=== PATIENT | male | born 1945 | race Caucasian/White ===

== ENCOUNTER 2024-06-04 18:55 | Emergency (ER) | payer OTHER ==
[~2024-06-04] VITALS: Ht 170.2 cm; Wt 93.6 kg
[~2024-06-04 18:55] MED LIST: ASPI81CH43 PO; FURO1TAB33 PO; Losartan Potassium PO; MET50T PO; POT20T PO
[2024-06-04 20:19] LABS: Basophils # (auto) 0 10 ^3/uL (0-0.2); Basophils % (auto) 0.6 % (0.0-2.0); Eosinophils # (auto) 0 10 ^3/uL (0-0.8); Eosinophils % (auto) 0.7 % (0.0-7.0); Hematocrit 42.3 % (41.0-53.0); Hemoglobin 14.1 g/dL (13.5-17.5); Lymphocytes # (auto) 0.7 10 ^3/uL (0.4-5.4); Lymphocytes % (auto) 10.5 % (10.0-50.0); Mean Corpuscular Hemoglobin 29.7 pg (28.0-32.0); Mean Corpuscular Hgb Conc. 33.2 g/dL (32.0-36.0); Mean Corpuscular Volume 89.4 fL (80.0-100.0); Monocytes # (auto) 0.2 10 ^3/uL (0-1.3); Monocytes % (auto) 3.5 % (0.0-12.0); Neutrophils # (auto) 5.4 10 ^3/uL (1.6-8.6); Neutrophils % (auto) 84.7 % (37.0-80.0); Nucleated Red Blood Cells % 0.2 %; Red Blood Cells 4.73 10^6/uL (4.5-5.90); Red Cell Distribution Width 14.9 % (11.8-14.3); White Blood Cell 6.4 10^3/uL (4.4-10.8)
[2024-06-04 20:23] LABS: Chloride 108 mmol/L (98-107); Potassium 4.1 mmol/L (3.5-5.1); Sodium 139 mmol/L (136-145)
[2024-06-04 20:24] LABS: Anion Gap 10 (5-15); Carbon Dioxide 21 mmol/L (20-30)
[2024-06-04 20:29] LABS: Blood Urea Nitrogen 24 mg/dL (9-23); Glucose 184 mg/dL (74-106)
[2024-06-04] MEDS: FUROSEMIDE 40 MG/4 ML VIAL IV ONE (21:15)
[2024-06-04 22:00] VITALS: PULSE 63; RESP 16; O2SAT 96
[2024-06-04 22:30] VITALS: BP 107/65; PULSE 63; RESP 18; TEMP 97.9; O2SAT 95
== END 2024-06-04 22:57 | disposition home or self-care (01) ==
LOC: ER 18:55
DX: I50.9 Heart failure, unspecified (principal); R79.89 Other specified abnormal findings of blood chemistry; J45.909 Unspecified asthma, uncomplicated; J44.9 Chronic obstructive pulmonary disease, unspecified; E78.5 Hyperlipidemia, unspecified; F17.210 Nicotine dependence, cigarettes, uncomplicated; Z85.9 Personal history of malignant neoplasm, unspecified; Z90.49 Acquired absence of other specified parts of digestive tract; Z95.1 Presence of aortocoronary bypass graft; Z79.899 Other long term (current) drug therapy
CPT/HCPCS: 36415; 71045; 80048; 83880; 84484; 85025; 93005; 96374; 99285; J1940

== ENCOUNTER 2024-06-18 18:45 | Emergency (ER) | payer OTHER ==
[~2024-06-18] VITALS: Ht 170.2 cm; Wt 91.8 kg
[2024-06-18 19:43] LABS: Basophils # (auto) 0.1 10 ^3/uL (0-0.2); Basophils % (auto) 0.8 % (0.0-2.0); Eosinophils # (auto) 0.2 10 ^3/uL (0-0.8); Eosinophils % (auto) 2.8 % (0.0-7.0); Hematocrit 44.3 % (41.0-53.0); Hemoglobin 14.6 g/dL (13.5-17.5); Lymphocytes # (auto) 1.3 10 ^3/uL (0.4-5.4); Lymphocytes % (auto) 20.4 % (10.0-50.0); Mean Corpuscular Hemoglobin 29.3 pg (28.0-32.0); Mean Corpuscular Volume 88.8 fL (80.0-100.0); Monocytes # (auto) 0.8 10 ^3/uL (0-1.3); Monocytes % (auto) 11.6 % (0.0-12.0); Neutrophils # (auto) 4.2 10 ^3/uL (1.6-8.6); Neutrophils % (auto) 64.4 % (37.0-80.0); Nucleated Red Blood Cells % 0.2 %; Red Blood Cells 4.99 10^6/uL (4.5-5.90); Red Cell Distribution Width 15.3 % (11.8-14.3); White Blood Cell 6.5 10^3/uL (4.4-10.8)
[2024-06-18 19:52] LABS: Chloride 107 mmol/L (98-107); Potassium 4.4 mmol/L (3.5-5.1); Sodium 142 mmol/L (136-145)
[2024-06-18 19:53] LABS: Anion Gap 9 (5-15); Calcium 8.7 mg/dL (8.7-10.4); Carbon Dioxide 26 mmol/L (20-30)
[2024-06-18 19:58] LABS: BUN/Creatinine Ratio 18.6 (10.0-20.0); Blood Urea Nitrogen 29 mg/dL (9-23); Glucose 138 mg/dL (74-106)
[2024-06-18 20:02] LABS: INR 1.15 (0.9-1.15); Partial Thromboplastin Time 25.2 SEC (24.5-34.5); Prothrombin Time 12.1 sec (9.3-11.8)
[2024-06-18 20:49] VITALS: PULSE 60; RESP 12; O2SAT 96
[2024-06-19 00:09] VITALS: BP 105/69; PULSE 62; RESP 11; TEMP 97.3; O2SAT 95
== END 2024-06-18 22:04 | disposition short-term general hospital (02) ==
LOC: ER 18:45
DX: I71.40 Abdominal aortic aneurysm, without rupture, unspecified (principal); J44.9 Chronic obstructive pulmonary disease, unspecified; Z90.49 Acquired absence of other specified parts of digestive tract; Z88.1 Allergy status to other antibiotic agents; Z79.899 Other long term (current) drug therapy; Z79.82 Long term (current) use of aspirin; E78.5 Hyperlipidemia, unspecified; Z98.890 Other specified postprocedural states
CPT/HCPCS: 36415; 71250; 74176; 80048; 83880; 84484; 85025; 85610; 85730; 86850; 86900; 86901; 93005

== ENCOUNTER 2024-09-10 00:03 | Inpatient (IN) | payer OTHER ==
[~2024-09-10] VITALS: Ht 170.2 cm; Wt 93.3 kg
[2024-09-10] VITALS (9 sets, daily range): BP systolic 100–110; BP diastolic 39–85; PULSE 60–66; RESP 16–20; TEMP 97.7–97.8; O2SAT 93–99
[2024-09-10] MEDS: ALBUTEROL SULF 2.5 MG/0.5ML(0.5%) NEB SOLN NEB ONE (00:35)
[2024-09-10] MEDS: IPRATROPIUM BROM 0.5 MG/2.5ML INH SOL NEB ONE (00:36)
[2024-09-10 00:43] LABS: Basophils # (auto) 0.1 10 ^3/uL (0-0.2); Basophils % (auto) 0.5 % (0.0-2.0); Eosinophils # (auto) 0.1 10 ^3/uL (0-0.8); Eosinophils % (auto) 1.1 % (0.0-7.0); Hemoglobin 15.4 g/dL (13.5-17.5); Lymphocytes # (auto) 1.1 10 ^3/uL (0.4-5.4); Lymphocytes % (auto) 11.9 % (10.0-50.0); Mean Corpuscular Hemoglobin 30.9 pg (28.0-32.0); Mean Corpuscular Hgb Conc. 33.6 g/dL (32.0-36.0); Mean Corpuscular Volume 92.1 fL (80.0-100.0); Monocytes # (auto) 1.1 10 ^3/uL (0-1.3); Neutrophils % (auto) 74.5 % (37.0-80.0); Platelet Count (auto) 155 10^3/uL (140-450); Red Cell Distribution Width 15.7 % (11.8-14.3); White Blood Cell 9.5 10^3/uL (4.4-10.8)
[2024-09-10 01:00] LABS: INR 1.38 (0.9-1.15); Partial Thromboplastin Time 26.7 SEC (24.5-34.5); Prothrombin Time 14.3 sec (9.3-11.8)
[2024-09-10 01:01] LABS: Alanine Aminotransferase 53 U/L (7-40); Albumin 4.3 g/dL (3.2-4.8); Alkaline Phosphatase 123 U/L (46-116); Anion Gap 8 (5-15); Aspartate Aminotransferase 42 U/L (13-40); BUN/Creatinine Ratio 15.6 (10.0-20.0); Blood Urea Nitrogen 35 mg/dL (9-23); Calcium 9.5 mg/dL (8.7-10.4); Carbon Dioxide 24 mmol/L (20-31); Chloride 105 mmol/L (98-107); Glucose 191 mg/dL (74-106); Potassium 4.3 mmol/L (3.5-5.1); Sodium 137 mmol/L (136-145)
[2024-09-10 01:02] LABS: Bilirubin, Total 1.5 mg/dL (0.2-1.0); Total Protein 6.9 g/dL (5.7-8.2)
[2024-09-10] MEDS: methylPREDNISolone SOD SUCC 125 MG/2 ML VL IV ONE (01:08)
[2024-09-10] MEDS: levoFLOXacin 500MG 100 ML IV ONE ×2 (01:09→10:37)
[2024-09-10] MEDS: BACLOFEN 10 MG TAB PO ONE (03:11)
[2024-09-10] MEDS: FUROSEMIDE 40 MG/4 ML VIAL IV ONE (03:12)
[2024-09-10] MEDS ORDERED: NITROGLYCERIN 0.4 MG SL TAB SL PRN (05:45)
[2024-09-10] MEDS ORDERED: ACETAMINOPHEN 325 MG TAB PO PRN (05:45)
[2024-09-10] MEDS ORDERED: MORPHINE SULFATE INJ 2 MG/ml SYRG IV PRN (05:45)
[2024-09-10] MEDS ORDERED: ONDANSETRON HCL 4 MG/2 ML VIAL IV PRN (05:45)
[2024-09-10] MEDS: SODIUM CHLOR 0.9% PF (SALINE LOCK) 10ML VIAL/SYR IV SCH (06:03)
[2024-09-10 07:27] LABS: Urine Bacteria None Seen /hpf (None Seen)
[2024-09-10 07:47] LABS: Urine Blood Negative /uL (Negative); Urine Clarity Clear (Clear); Urine Color Yellow (Yellow); Urine Hyaline Cast FEW /lpf (0 - 2); Urine Mucus FEW (None Seen); Urine Protein, UAD 1+ (Negative); Urine Specific Gravity 1.019 (1.001-1.035); Urine Urobilinogen Normal (Negative); Urine WBC 2 /hpf (0 - 3); Urine pH 5.5 (5.0-9.0)
[2024-09-10 07:56] LABS: COVID19 ANTIGEN SOFIA FIA NEGATIVE (NEGATIVE); Rapid Influenza A Negative (Negative); Rapid Influenza B Negative (Negative)
[2024-09-10 08:17] LABS: Creatinine, Urine 111.5 mg/dL (30.0-125.0)
[2024-09-10 08:44] LABS: Amphetamine Screen, Urine Neg (NEGATIVE); Benzodiazephine Screen, Urine Neg (NEGATIVE)
[2024-09-10 08:45] LABS: Barbiturate Scree,Urine Neg (NEGATIVE); Cannabinoid Screen, Urine Neg (NEGATIVE); Cocaine Screen, Urine Neg (NEGATIVE); Opiate Scree,Urine Pos (NEGATIVE); Phencyclidine Screen, Urine Neg (NEGATIVE)
[2024-09-10] MEDS ORDERED: METOPROLOL TARTRATE 50 MG TAB PO SCH (10:00)
[2024-09-10] MEDS ORDERED: LOSARTAN POTASSIUM 25 MG PO SCH (10:00)
[2024-09-10] MEDS ORDERED: ALBUTEROL SULF 2.5 MG/0.5ML(0.5%) NEB SOLN NEB SCH (10:00)
[2024-09-10] MEDS ORDERED: IPRATROPIUM BROM 0.5 MG/2.5ML INH SOL NEB SCH (10:00)
[2024-09-10] MEDS: FUROSEMIDE 40 MG/4 ML VIAL IV SCH (10:38)
[2024-09-10] MEDS: ENOXAPARIN SOD 40 MG/0.4 ML SYRINGE SC SCH (10:38)
[2024-09-10] MEDS: PANTOPRAZOLE 40 MG TAB PO SCH (10:39)
[2024-09-10] MEDS: ASPirin 81 mg TAB PO SCH (10:39)
[2024-09-10] MEDS: LOSARTAN POTASSIUM 25 MG TAB PO SCH (10:40)
[2024-09-10] MEDS: ATORVASTATIN 20 MG TAB PO SCH (21:48)
[2024-09-10] MEDS ORDERED: ATORVASTATIN 20 MG TAB PO SCH (22:00)
[2024-09-11] VITALS (15 sets, daily range): BP systolic 100–109; BP diastolic 61–78; PULSE 60–74; RESP 16–22; TEMP 97.5–98.3; O2SAT 92–100
[2024-09-11] MEDS: IPRATROPIUM BROM 0.5 MG/2.5ML INH SOL NEB PRN (00:52)
[2024-09-11] MEDS: ALBUTEROL SULF 2.5 MG/0.5ML(0.5%) NEB SOLN NEB PRN (00:56)
[2024-09-11 06:49] LABS: Alanine Aminotransferase 112 U/L (7-40); Alkaline Phosphatase 128 U/L (46-116); Anion Gap 13 (5-15); Aspartate Aminotransferase 101 U/L (13-40); BUN/Creatinine Ratio 20.5 (10.0-20.0); Bilirubin, Total 1.7 mg/dL (0.2-1.0); Calcium 9.8 mg/dL (8.7-10.4); Carbon Dioxide 22 mmol/L (20-31); Chloride 101 mmol/L (98-107); Glucose 199 mg/dL (74-106); Potassium 4.3 mmol/L (3.5-5.1); Sodium 136 mmol/L (136-145); Total Protein 6.5 g/dL (5.7-8.2)
[2024-09-11 06:51] LABS: Basophils # (auto) 0 10 ^3/uL (0-0.2); Eosinophils # (auto) 0 10 ^3/uL (0-0.8); Hematocrit 44.5 % (41.0-53.0); Hemoglobin 14.9 g/dL (13.5-17.5); Lymphocytes # (auto) 0.8 10 ^3/uL (0.4-5.4); Lymphocytes % (auto) 6.6 % (10.0-50.0); Mean Corpuscular Hemoglobin 30.8 pg (28.0-32.0); Mean Corpuscular Hgb Conc. 33.5 g/dL (32.0-36.0); Mean Corpuscular Volume 91.9 fL (80.0-100.0); Monocytes # (auto) 1.4 10 ^3/uL (0-1.3); Neutrophils # (auto) 9.5 10 ^3/uL (1.6-8.6); Neutrophils % (auto) 81.4 % (37.0-80.0); Nucleated Red Blood Cells % 0.2 %; Platelet Count (auto) 140 10^3/uL (140-450); Red Blood Cells 4.84 10^6/uL (4.5-5.90); Red Cell Distribution Width 15.7 % (11.8-14.3); White Blood Cell 11.7 10^3/uL (4.4-10.8)
[2024-09-11 06:53] LABS: Blood Urea Nitrogen 53 mg/dL (9-23)
[2024-09-11] MEDS: FUROSEMIDE 40 MG/4 ML VIAL IV SCH (09:42)
[2024-09-11] MEDS ORDERED: levoFLOXacin 250MG 50 ML IV SCH (10:00)
[2024-09-11] MEDS ORDERED: EMPA1TAB3 PO (13:34)
[2024-09-11] MEDS ORDERED: AMIO200T33 PO (13:34)
[2024-09-11] MEDS ORDERED: OMEP-434 PO (13:34)
[2024-09-11] MEDS ORDERED: TAMS1CAP25 PO (13:34)
[2024-09-11] MEDS ORDERED: SPIR25TA8 PO (13:34)
[2024-09-11] MEDS ORDERED: FURO1TAB31 PO (13:34)
[2024-09-11] MEDS ORDERED: SACU1TAB PO (13:34)
[2024-09-11] MEDS ORDERED: POTA-36 PO (13:34)
[2024-09-11] MEDS ORDERED: HYDR-4902 PO (13:38)
[2024-09-11] MEDS ORDERED: BISO5TAB44 PO (13:38)
[2024-09-11] MEDS: TAMSULOSIN HYDROCHLORIDE 0.4 MG CAP PO SCH (18:26)
[2024-09-11] MEDS: DOXYCYCLINE 100 MG TAB/CAP PO SCH (21:07)
[2024-09-12] VITALS (9 sets, daily range): BP systolic 95–112; BP diastolic 53–68; PULSE 59–76; RESP 18–19; TEMP 97.5–98; O2SAT 97–100
[2024-09-12 05:53] LABS: Basophils # (auto) 0 10 ^3/uL (0-0.2); Basophils % (auto) 0.1 % (0.0-2.0); Eosinophils # (auto) 0 10 ^3/uL (0-0.8); Eosinophils % (auto) 0.1 % (0.0-7.0); Hematocrit 43.5 % (41.0-53.0); Hemoglobin 14.9 g/dL (13.5-17.5); Lymphocytes # (auto) 0.9 10 ^3/uL (0.4-5.4); Lymphocytes % (auto) 9.2 % (10.0-50.0); Mean Corpuscular Hgb Conc. 34.3 g/dL (32.0-36.0); Mean Corpuscular Volume 90.2 fL (80.0-100.0); Monocytes # (auto) 1.2 10 ^3/uL (0-1.3); Monocytes % (auto) 12.6 % (0.0-12.0); Neutrophils # (auto) 7.6 10 ^3/uL (1.6-8.6); Nucleated Red Blood Cells % 0.2 %; Platelet Count (auto) 107 10^3/uL (140-450); Red Blood Cells 4.82 10^6/uL (4.5-5.90); Red Cell Distribution Width 15.9 % (11.8-14.3); White Blood Cell 9.7 10^3/uL (4.4-10.8)
[2024-09-12 06:03] LABS: Alanine Aminotransferase 236 U/L (7-40); Albumin 3.8 g/dL (3.2-4.8); Alkaline Phosphatase 163 U/L (46-116); Anion Gap 12 (5-15); Aspartate Aminotransferase 204 U/L (13-40); Calcium 9.6 mg/dL (8.7-10.4); Carbon Dioxide 22 mmol/L (20-31); Chloride 102 mmol/L (98-107); Glucose 159 mg/dL (74-106); Potassium 4.6 mmol/L (3.5-5.1); Sodium 136 mmol/L (136-145)
[2024-09-12 06:04] LABS: Bilirubin, Total 2.1 mg/dL (0.2-1.0); Total Protein 5.9 g/dL (5.7-8.2)
[2024-09-12 06:19] LABS: Blood Urea Nitrogen 72 mg/dL (9-23)
[2024-09-12] MEDS: AMIODARONE HCL 200 MG TAB PO SCH (10:10)
[2024-09-12] MEDS: EMPAGLIFLOZIN 10 MG TAB PO SCH (10:11)
[2024-09-12 14:26] LABS: Hepatitis B Core Total AB Negative (Negative)
[2024-09-12 15:13] LABS: Hepatitis A Total Antibody Negative (Negative); Hepatitis B Surface Antibody Negative (Negative); Hepatitis B Surface Antigen Negative (Negative); Hepatitis C Antibody Negative (Negative)
[2024-09-13] MEDS ORDERED: ENOXAPARIN SOD 30 MG/0.3 ML SYRINGE SC SCH (10:00)
== END 2024-09-12 18:30 | disposition short-term general hospital (02) | DRG 189 ==
LOC: ER 00:03 → TELE 05:43 → TELE-WESTW 20:53
PROVIDERS: ADMIT Internal Medicine; ATTEND Internal Medicine
DX: J96.00 Acute respiratory failure, unspecified whether with hypoxia or hypercapnia (principal); J15.69 Pneumonia due to other Gram-negative bacteria; I50.23 Acute on chronic systolic (congestive) heart failure; N17.0 Acute kidney failure with tubular necrosis; J15.9 Unspecified bacterial pneumonia; I13.0 Hypertensive heart and chronic kidney disease with heart failure and stage 1 through stage 4 chronic kidney disease, or unspecified chronic kidney disease; J44.0 Chronic obstructive pulmonary disease with (acute) lower respiratory infection; E78.5 Hyperlipidemia, unspecified; N40.0 Benign prostatic hyperplasia without lower urinary tract symptoms; E11.22 Type 2 diabetes mellitus with diabetic chronic kidney disease; E80.6 Other disorders of bilirubin metabolism; E66.9 Obesity, unspecified; R74.01 Elevation of levels of liver transaminase levels; N18.30 Chronic kidney disease, stage 3 unspecified; I25.10 Atherosclerotic heart disease of native coronary artery without angina pectoris; E03.9 Hypothyroidism, unspecified; F03.90 Unspecified dementia, unspecified severity, without behavioral disturbance, psychotic disturbance, mood disturbance, and anxiety; Z79.899 Other long term (current) drug therapy; Z95.1 Presence of aortocoronary bypass graft; Z95.0 Presence of cardiac pacemaker; Z87.891 Personal history of nicotine dependence; Z79.4 Long term (current) use of insulin; Z68.32 Body mass index [BMI] 32.0-32.9, adult; Z79.82 Long term (current) use of aspirin
CPT/HCPCS: 36415; 71045; 76775; 80053; 80307; 81001; 82570; 83036; 83880; 83935; 84300; 84443; 84484; 85025; 85610; 85730; 86704; 86706; 86708; 86803; 87340; 87426; 87804; 93005; 93306; 94640; 96365; 96366; 96372; 96375; 96376; 97110; 97116; 97163; 97530; 99291; G0378; J1956

== ENCOUNTER 2025-08-07 01:14 | Inpatient (IN) | payer MEDICARE, OTHER ==
[~2025-08-07] VITALS: Ht 170.2 cm; Wt 95.7 kg
[2025-08-07] VITALS (32 sets, daily range): BP systolic 97–128; BP diastolic 47–73; PULSE 56–81; RESP 12–28; TEMP 97.9–98.1; O2SAT 91–100
[~2025-08-07 01:14] MED LIST changes: +AMIO200T33 PO; +BISO5TAB44 PO; +EMPA1TAB3 PO; +FURO1TAB31 PO; +HYDR-4902 PO; +OMEP-434 PO; +POTA-36 PO; +SACU1TAB PO; +SPIR25TA8 PO; +TAMS1CAP25 PO
--- NOTE | 2025-08-07 01:30 | ECG ---
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
--- NOTE | 2025-08-07 01:33 | ED.PDOC ---
SOB-HPI HPI Comments This is a 79-year-old male, with a Hx of COPD, CHF, Asthma, and Pacemaker, who presents to the ED with a chief complaint of SOB with associated cough and swelling of the bilateral lower extremities for X1 week. Patient reports taking an at home COVID test today with negative results. Patient has no further complaints at this time and otherwise denies chest pain, hemoptysis, fever, chills, or N/V/D. REVIEW OF SYSTEMS: General: No fever, no chills, or fatigue HEENT: No sore throat, no earache, no congestion, no neck pain. Cardiac: No chest pain. No palpitations. Lungs: Positive shortness of breath, Positive cough. GI: No nausea, no vomiting, no diarrhea, no constipation, no abdominal pain : No dysuria, frequency, or urgency. No hematuria. Musculoskeletal: No joint pain , Positive joint swelling, no extremity edema. Skin: No rash, no itching. Neuro: No headache, no dizziness, no weakness EXAM: General: Awake, alert and oriented. No acute distress. Skin: Skin in warm, dry and intact. Appropriate color for ethnicity. HEENT: The head is normocephalic and atraumatic. Conjunctivae are clear without exudates or hemorrhage. Sclera is non-icteric. EOM are intact. No signs of nystagmus. Eyelids are normal in appearance without swelling or lesions. Oral mucosa is pink and moist Neck: The neck is supple with normal range of motion. No JVD. Cardiac: Heart rate and rhythm are normal. No murmurs, gallops, or rubs are auscultated. Respiratory: No signs of respiratory distress. Lung sounds are clear in all lobes bilaterally without rales, rhonchi, or wheezes. Abdominal: Abdomen is soft, non-tender without distention. Bowel sounds are present and normoactive in all four quadrants. Extremities: Upper and lower extremities are atraumatic in appearance without deformity or edema. Neurological: The patient is awake, alert and oriented to person, place, and time with normal speech. Speech is clear. There is no facial asymmetry. Psychiatric: Appropriate mood and affect. Good judgement and insight Chief Complaint: Shortness of Breath Time Seen by MD: 01:23 Primary Care Provider: MARY Reviewed notes: Medications, Allergies Information Source: Patient Mode of Arrival: Ambulatory Severity: Moderate Timing: Weeks Duration: Since onset Context: At Rest, With Light Exertion, With Heavy Exertion History of: Asthma, COPD, CHF Prehospital treatment: None Associated Signs and Symptoms: Cough, Leg Swelling If cough with SOB: Non-Productive Past Medical History PAST MEDICAL HISTORY: Asthma, Cancer, CHF, CKF, COPD, High Lipids Surgical History: Appendectomy, CABG, Pacemaker Family History Family History: No family hx of Cancer, No family hx of DM, Unknown Social History Smoker: Non-Smoker, Quit Greater Than 1 Year, Cigarettes Alcohol: Occasionally Drugs: Denies Drug Use Lives In: Home EKG EKG : Pulse Rate (adult): 64 Block: RBBB Comments Atrial Ventricular dual-paced complex; non-specific ST depression Was a procedure done? Was a procedure done?: No Differential Dx Differential Diagnosis: Anxiety, Asthma, CHF, COPD, Pneumonia, Allergic Rhi nitis X-Ray, Labs, Meds, VS Vital Signs Date Time Temp Pulse Resp B/P (MAP) Pulse Ox O2 Delivery O2 Flow Rate FiO2 08/07/25 11:00 60 26 91/51 (64) 90 08/07/25 10:00 97.6 60 18 93/49 (64) 94 97.6 08/07/25 08:00 62 18 95/60 (72) 98 08/07/25 07:46 104/68 08/07/25 07:25 68 22 94 Nasal Cannula* 2 28 08/07/25 07:25 97.6 68 22 104/68 (80) 96 97.6 08/07/25 06:33 20 98 Room Air* 0 21 08/07/25 05:06 71 16 109/67 (81) 95 08/07/25 02:22 70 08/07/25 01:47 18 96 Room Air* 0 21 08/07/25 01:47 18 98 Room Air* 0 21 08/07/25 01:33 64 08/07/25 01:27 97.6 66 16 111/71 97 97.6 08/07/25 01:24 64 Lab Test 08/07/25 02:26 08/07/25 01:34 Range/Units Troponin I High Sensitivity 10 11 </=54 ng/L White Blood Count 8.7 4.4-10.8 10^3/uL Red Blood Count 5.19 4.5-5.90 10^6/uL Hemoglobin 15.7 13.5-17.5 g/dL Hematocrit 47.8 41.0-53.0 % Mean Corpuscular Volume 92.1 80.0-100.0 fL Mean Corpuscular Hemoglobin 30.2 28.0-32.0 pg Mean Corpuscular Hemoglobin Concent 32.7 32.0-36.0 g/dL Red Cell Distribution Width 16.2 H 11.8-14.3 % Platelet Count 126 L 140-450 10^3/uL Mean Platelet Volume 8.5 6.9-10.8 fL Neutrophils (%) (Auto) 75.1 37.0-80.0 % Lymphocytes (%) (Auto) 12.7 10.0-50.0 % Monocytes (%) (Auto) 11.0 0.0-12.0 % Eosinophils (%) (Auto) 0.9 0.0-7.0 % Basophils (%) (Auto) 0.3 0.0-2.0 % Neutrophils # (Auto) 6.6 1.6-8.6 10 ^3/uL Lymphocytes # (Auto) 1.1 0.4-5.4 10 ^3/uL Monocytes # (Auto) 1.0 0-1.3 10 ^3/uL Eosinophils # (Auto) 0.1 0-0.8 10 ^3/uL Basophils # (Auto) 0 0-0.2 10 ^3/uL Nucleated Red Blood Cells 0.1 % Sodium Level 140 136-145 mmol/L Potassium Level 5.2 H 3.5-5.1 mmol/L Chloride Level 103 98-107 mmol/L Carbon Dioxide Level 23 20-31 mmol/L Anion Gap 14 5-15 Blood Urea Nitrogen 28 H 9-23 mg/dL Creatinine 3.35 H 0.700-1.30 mg/dL Glomerular Filtration Rate Calc 18 >90 mL/min BUN/Creatinine Ratio 8.4 L 10.0-20.0 Serum Glucose 208 H 74-106 mg/dL Calcium Level 8.9 8.7-10.4 mg/dL B-Type Natriuretic Peptide 4471.28 0-100 pg/mL Current Medications Medications (Trade) Dose Ordered Sig/Freddy Route Start Time Stop Time Status Last Admin Albuterol (Ventolin Medneb) 2.5 mg ONCE ONCE NEB 08/07/25 01:30 08/07/25 01:31 DC 08/07/25 01:47 Albuterol (Ventolin Medneb) 2.5 mg ONCE ONCE NEB 08/07/25 05:30 08/07/25 05:31 DC 08/07/25 06:33 Prednisone 40 mg ONCE ONCE PO 08/07/25 05:30 08/07/25 05:31 DC 08/07/25 06:09 Furosemide (Lasix Injection) 40 mg ONCE ONCE IV 08/07/25 07:15 08/07/25 07:16 DC 08/07/25 07:46 [place] [address] Ph: [phone] DIAGNOSTIC IMAGING Diagnostic Imaging Report : [id number] Signed PATIENT: LUIS ALBERTO AMAYA ACCT: [id number] UNIT: [id number] : 1945 LOC: ER ROOM / BED: / AGE / SEX: 79 / M ADM STATUS: REG ER SERVICE 7 ORDERING PHYSICIAN: KJ ROTHMAN MD PROCEDURE(s): CXR1 - CHEST XRAY 1 VIEW REASON: sob ORDER NUMBER(s): [id number], ACCESSION NUMBER(s): [id number] CHEST RADIOGRAPH Indication: sob Technique: Single frontal view of the chest was obtained COMPARISON: XY CHEST PORTABLE on DOS: 09/11/24, XY CHEST PORTABLE on DOS: 09/10/24, CT CHST AB PEL WO CON-NO IV/ORAL on DOS: 06/18/24, XY CHEST XRAY 1 VIEW on DOS: 06/04/24 FINDINGS: Lines and Tubes: None. Left anterior chest wall dual lead cardiac pacing device. Lungs: Clear Pleura: No effusion. No pneumothorax. Cardiomediastinal contours: Cardiomegaly status post median sternotomy. Bones: Unremarkable IMPRESSION: 1. Cardiomegaly. Images Reviewed?: Images reviewed and evaluated by me Time of 1ST Reevaluation: 01:52 Reevaluation 1ST: Unchanged Patient Education/Counseling: Diagnosis, Treatment Family Education/Counseling: No Family Present Medical Screening: No EMC Exist At This Time SEPSIS Sepsis Screen Physician Orders Chest Xray 1 View (08/07/25 01:28) Covid19 Antigen Kiki (08/07/25 ) Rapid Influenza A&B (08/07/25 01:28) Electrocardigram (08/07/25 04:28) Imaging Transfer Request (08/07/25 11:18) Vital Signs Date Time Temp Pulse Resp B/P (MAP) Pulse Ox O2 Delivery O2 Flow Rate FiO2 08/07/25 11:00 60 26 91/51 (64) 90 08/07/25 10:00 97.6 60 18 93/49 (64) 94 97.6 08/07/25 08:00 62 18 95/60 (72) 98 08/07/25 07:46 104/68 08/07/25 07:25 68 22 94 Nasal Cannula* 2 28 08/07/25 07:25 97.6 68 22 104/68 (80) 96 97.6 08/07/25 06:33 20 98 Room Air* 0 21 08/07/25 05:06 71 16 109/67 (81) 95 08/07/25 02:22 70 08/07/25 01:47 18 96 Room Air* 0 21 08/07/25 01:47 18 98 Room Air* 0 21 08/07/25 01:33 64 08/07/25 01:27 97.6 66 16 111/71 97 97.6 08/07/25 01:24 64 Laboratory Tests Test 08/07/25 01:34 White Blood Count 8.7 10^3/uL (4.4-10.8) Medications Medications Dose Ordered Sig/Freddy Route Start Time Stop Time Status Last Admin Dose Admin Albuterol 2.5 mg ONCE ONCE NEB 08/07/25 01:30 08/07/25 01:31 DC 08/07/25 01:47 Albuterol 2.5 mg ONCE ONCE NEB 08/07/25 05:30 08/07/25 05:31 DC 08/07/25 06:33 Furosemide 40 mg ONCE ONCE IV 08/07/25 07:15 08/07/25 07:16 DC 08/07/25 07:46 Prednisone 40 mg ONCE ONCE PO 08/07/25 05:30 08/07/25 05:31 DC 08/07/25 06:09 Departure 1 Departure Time of Disposition: 03:19 (Patient is hypotensive and not stable for transfer Kiaser Authorization to admit to [facility]: [id number] presented with shortness of breath that was concerning for possible STEMI, ACS, PE, Pneumonia, Muscle Strain, COPD, Dissection, Acute on Chronic systolic and Diastolic dysfunction. Data: 1. I ordered and reviewed the result of at least 3 labs including a CBC, BMP, and Troponin. 2. I independently interpreted the following tests: EKG which shows sinus arrhthmia and Chest X-ray which shows cardiomegaly.Risk:This patient has a high risk of morbidity due to further diagnostic testing or treatment and may suffer from an acute cardiac or respiratory disorder but is most consitent with an acute chf exacerbation. Patient should be admitted for further workup and possible expert consultation. ) Impression: Primary Impression: SOB (shortness of breath) Additional Impressions: MICAELA (acute kidney injury) Hyperkalemia Hyperglycemia Asthma exacerbation Disposition: [facility] Admit to: Tele Condition: Guarded Critical Care Note Critical Care Time?: Yes Critical care comment: Acute shortness of breath Authorized and Performed by: Tara Mathews MD Total critical care time: Approximately 38 minutes Due to a high probability of clinically significant, life threatening deterioration, the patient required my highest level of preparedness to intervene emergently and I personally spent this critical care time directly and personally managing the patient. This critical care time included obtaining a history; examining the patient; pulse oximetry; ordering and review of studies; arranging urgent treatment with development of a management plan; evaluation of patient's response to treatment; frequent reassessment; and, discussions with other providers. This critical care time was performed to assess and manage the high probability of imminent, life-threatening deterioration that could result in multi-organ failure. It was exclusive of separately billable procedures and treating other patients and teaching time. Please see my other sections and the rest of the note for further information on patient assessment and treatment. Stability Stability form required: No Heart Score Heart Score: Heart Score Response (Comments) Value History Slightly Suspicious 0 EKG Normal 0 Age >65 2 Risk Factors 1 or 2 risk factors 1 Troponin Normal limit 0 Total 3 I personally scribed for KJ ROTHMAN MD ([email or web address]) on 08/07/25 at 01:33. Electronically submitted by Madelin Tanner ([email or web address]). I personally scribed for KJ ROTHMAN MD ([email or web address]) on 08/07/25 at 02:07. Electronically submitted by Madelin Tanner ([employer]). I personally scribed for KJ ROTHMAN MD ([email or web address]) on 08/07/25 at 02:22. Electronically submitted by Madelin Tanner ([email or web address]). KJ ROTHMAN MD Aug 07, 2025 01:33 TARA MATHEWS MD Aug 07, 2025 08:16
[2025-08-07 01:41] LABS: Hematocrit 47.8 % (41.0-53.0); Hemoglobin 15.7 g/dL (13.5-17.5); Mean Corpuscular Hemoglobin 30.2 pg (28.0-32.0); Mean Corpuscular Volume 92.1 fL (80.0-100.0); Nucleated Red Blood Cells % 0.1 %
[2025-08-07] MEDS: ALBUTEROL SULF 2.5 MG/0.5ML(0.5%) NEB SOLN NEB ONE ×2 (01:47→06:33)
[2025-08-07 01:58] LABS: Chloride 103 mmol/L (98-107); Sodium 140 mmol/L (136-145)
[2025-08-07 01:59] LABS: Anion Gap 14 (5-15); Calcium 8.9 mg/dL (8.7-10.4); Carbon Dioxide 23 mmol/L (20-31)
[2025-08-07 02:04] LABS: BUN/Creatinine Ratio 8.4 (10.0-20.0)
[2025-08-07 02:06] LABS: Blood Urea Nitrogen 28 mg/dL (9-23); Glucose 208 mg/dL (74-106); Potassium 5.2 mmol/L (3.5-5.1)
--- NOTE | 2025-08-07 02:06 | DVH ---
CHEST RADIOGRAPH Indication: sob Technique: Single frontal view of the chest was obtained COMPARISON: XY CHEST PORTABLE on DOS: 09/11/24, XY CHEST PORTABLE on DOS: 09/10/24, CT CHST AB PEL WO CON-NO IV/ORAL on DOS: 06/18/24, XY CHEST XRAY 1 VIEW on DOS: 06/04/24 FINDINGS: Lines and Tubes: None. Left anterior chest wall dual lead cardiac pacing device. Lungs: Clear Pleura: No effusion. No pneumothorax. Cardiomediastinal contours: Cardiomegaly status post median sternotomy. Bones: Unremarkable IMPRESSION: 1. Cardiomegaly.
[2025-08-07] MEDS: predniSONE 20 MG TAB PO ONE (06:09)
--- NOTE | 2025-08-07 06:52 | ECG ---
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
[2025-08-07] MEDS: FUROSEMIDE 40 MG/4 ML VIAL IV ONE (07:46)
[2025-08-07] MEDS ORDERED: KETAMINE 50mg/ML 10ml Vial (500mg/10ml) IV ONE (08:30)
[2025-08-07 13:09] LABS: COVID19 ANTIGEN SOFIA FIA NEGATIVE (NEGATIVE)
--- NOTE | 2025-08-07 13:48 | DVH ---
INDICATION: rex on ckd TECHNIQUE: Multiple real-time sonographic images of the kidneys and bladder were obtained. COMPARISON: US KIDNEY on DOS: 09/10/24 FINDINGS: The right kidney measures 11 cm in length, which is normal in size. There is normal echogen icity of the right kidney. No hydronephrosis. Mild cortical renal scarring. The left kidney measures 11 cm in length, which is normal in size. There is normal echogenicity of th e left kidney. No hydronephrosis. Mild cortical renal scarring. Possible bladder wall thickening versus underdistention. Trace ascites. IMPRESSION: Mild bilateral cortical renal scarring. No hydronephrosis. Possible bladder wall thickening versus underdistention. Correlate with urinalysis. Trace ascites.
[2025-08-07] MEDS: SODIUM CHLORIDE 0.9% 250 ML IV ONE (14:03)
[2025-08-07] MEDS: FUROSEMIDE 40 MG/4 ML VIAL IV SCH (14:07)
--- NOTE | 2025-08-07 14:54 | DVHHP2 ---
Admitting Diagnosis: Shortness of her breath History of Present Illness This is a 79-year-old male, with a Hx of COPD, CHF, Asthma, and Pacemaker, who presents to the ED with a chief complaint of SOB with associated cough and swelling of the bilateral lower extremities for X1 week. Patient reports taking an at home COVID test today with negative results. Patient has no further complaints at this time and otherwise denies chest pain, hemoptysis, fever, chills, or N/V/D. PAST MEDICAL HISTORY: Asthma, Cancer, CHF, CKF, COPD, High Lipids Surgical History: Appendectomy, CABG, Pacemaker Family History Family History: No family hx of Cancer, No family hx of DM, Unknown Social History Smoker: Non-Smoker, Quit Greater Than 1 Year, Cigarettes Alcohol: Occasionally Drugs: Denies Drug Use Lives In: Home REVIEW OF SYSTEMS: General: No fever, no chills, or fatigue HEENT: No sore throat, no earache, no congestion, no neck pain. Cardiac: No chest pain. No palpitations. Lungs: Positive shortness of breath, Positive cough. GI: No nausea, no vomiting, no diarrhea, no constipation, no abdominal pain : No dysuria, frequency, or urgency. No hematuria. Musculoskeletal: No joint pain , Positive joint swelling, no extremity edema. Skin: No rash, no itching. Neuro: No headache, no dizziness, no weakness Patient Family History: FH: lung cancer G8 MOTHER Family history: Diabetes mellitus G8 MOTHER Unknown G8 FATHER Allergies: Coded Allergies: Amoxicillin (Verified Allergy, Mild, 06/18/24) Erythromycin (Verified Allergy, Unknown, 09/10/24) Home Meds Active Scripts Furosemide (Lasix) 20 Mg Tb, 20 MG PO DAILY, #30 TAB Prov:IZA JOHN MD 01/03/15 Potassium Chloride (KLOR-CON TABLET) 20 Meq Tb, 8 MEQ PO DAILY, #30 TAB Prov:IZA JOHN MD 01/03/15 Metoprolol Tartrate (LOPRESSOR TABLET) 50 Mg Tb, 25 MG PO BID, #60 TAB Prov:IZA JOHN MD 01/03/15 [Losartan Potassium] 25 MG TB No Conflict Check, 25 MG PO DAILY, #30 TAB Prov:IZA JOHN MD 01/03/15 Aspirin (Asa) 81 Mg Ch, 81 MG PO DAILY, #30 TAB.EC Prov:IZA JOHN MD 01/03/15 Reported Medications Hydrocodone-Acetaminophen (Hydrocodone Bitartrate/AC 5-325 mg) 1 Tab Tab, 1 TAB PO, TAB 09/11/24 Bisoprolol Fumarate (Bisoprolol Fumarate) 5 Mg Tab, 10 MG PO BID, TAB 09/11/24 Potassium Chloride (POTASSIUM CHLORIDE CR) 10 Meq Tb, 10 MEQ PO BID, TAB 09/11/24 Amiodarone Hcl (Amiodarone Hcl) 200 Mg Tab, 200 MG PO DAILY for 30 Days 09/11/24 Sacubitril-Valsartan (Entresto 24-26 mg) 1 Tab Tab, 1 TAB PO DAILY, TAB 09/11/24 Omeprazole Magnesium (Omeprazole) 20 Mg Tab, 40 MG PO DAILY, TAB 09/11/24 Tamsulosin HCl (Tamsulosin Hydrochloride) 0.4 Mg Cap, 0.8 MG PO DAILY, CAP 09/11/24 Furosemide (Lasix) 40 Mg Tab, 40 MG PO BID, TAB 09/11/24 Spironolactone (Spironolactone) 25 Mg Tab, 25 MG PO DAILY, TAB 09/11/24 Empagliflozin (Jardiance) 25 Mg Tab, 25 MG PO DAILY, TAB 09/11/24 Current Medications Current Medications Medications (Trade) Dose Ordered Sig/Freddy Route PRN Reason Start Time Stop Time Status Last Admin Furosemide (Lasix Injection) 40 mg BID IV 08/07/25 22:00 Sodium Chloride (Saline Lock Ns) 10 ml Q8HR IV 08/07/25 22:00 Docusate Sodium (Colace Capsule) 100 mg BIDPRN PRN PO FOR CONSTIPATION 08/07/25 15:00 Acetaminophen (Tylenol Tablet) 650 mg Q6HP PRN PO PAIN SCALE 1-3 OR TEMP>100.4 08/07/25 15:00 Acetaminophen/ Hydrocodone Bitart ([place] 5/325MG Tab) 1 tab Q4HP PRN PO MODERATE PAIN (4-6 PAIN SCALE) 08/07/25 15:00 Ondansetron HCl (Zofran) 4 mg Q4HP PRN IV NAUSEA / VOMITING 08/07/25 15:00 Heparin Sodium (Porcine) 5,000 units Q12HR SC 08/07/25 22:00 Vital Signs Vital Signs Date Time Temp Pulse Resp B/P (MAP) Pulse Ox O2 Delivery O2 Flow Rate FiO2 08/07/25 14:07 84/49 08/07/25 14:00 97.1 59 27 98 97.1 08/07/25 13:00 Nasal Cannula* 2 28 Physical Exam Generally 79 years old male, well nourished well developed. No apparent distress HEENT-atraumatic normocephalic Heart-regular rate and rhythm Lungs decreased breath sounds bilaterally Abdomen soft, nontender nondistended Musculoskeletal-positive edema, no cyanosis Neuro-AO x3, no focal deficits SEPSIS Sepsis Screen Date sepsis recognized/suspect: Aug 07, 2025 Time Sepsis recognized/suspect: 1300 Recent Procedure: No On Antibiotic Therapy: No Respiratory Rate >20: No Heart Rate >90: No Temp<36 C (96.8 F) or >38.3 C: No SBP <90 or MAP <65 mmHG: Yes New Acute Mental Status Change: No Is the patient on CPAP, BIPAP,: No Physician Orders Chest Xray 1 View (08/07/25 01:28) Electrocardigram (08/07/25 04:28) Imaging Transfer Request (08/07/25 11:18) * Cardiology Consult (08/07/25 13:15) *[facility] (08/07/25 13:15) Furosemide Injection (Lasix Injection) (08/07/25 22:00) Echo 2d Mode Cardiac Dop (08/07/25 13:15) Daily Weight (08/07/25 13:15) Maintain Fluid Restrictions QSHIFT (08/07/25 13:15) Strict I & O QSHIFT (08/07/25 13:15) Complete Blood Count (08/08/25 05:00) Complete Blood Count (08/09/25 05:00) Complete Blood Count (08/10/25 05:00) Complete Blood Count (08/11/25 05:00) Complete Blood Count (08/12/25 05:00) Comprehensive Metabolic Panel (08/08/25 05:00) Comprehensive Metabolic Panel (08/09/25 05:00) Comprehensive Metabolic Panel (08/10/25 05:00) Comprehensive Metabolic Panel (08/11/25 05:00) Comprehensive Metabolic Panel (08/12/25 05:00) Magnesium (08/08/25 05:00) Magnesium (08/09/25 05:00) Magnesium (08/10/25 05:00) Magnesium (08/11/25 05:00) Magnesium (08/12/25 05:00) Kidney (08/07/25 13:15) Dobutamine 1000mcg/Ml (Dobutrex) (08/07/25 15:00) Admit (08/07/25 14:56) Code Status (08/07/25 14:56) Vital Signs .PER UNIT PROTOCOL (08/07/25 14:56) Review Orders With Adm.Md (08/07/25 14:56) Encourage Activity As Tolerate (08/07/25 14:56) Sodium Chloride Lock (Saline Lock Ns) (08/07/25 22:00) Docusate Sodium Capsule (Colace Capsule) (08/07/25 15:00) Acetaminophen Tablet (Tylenol Tablet) (08/07/25 15:00) Notify Md Of Changes From Base (08/07/25 14:56) Advance Directive (08/07/25 14:56) Patient Condition (08/07/25 14:56) Allergies (08/07/25 14:56) Hydrocodone-Acet 5/325mg Tab ([place] 5/32 (08/07/25 15:00) Ondansetron Hcl (Zofran) (08/07/25 15:00) Heparin Sodium (Porcine) (08/07/25 22:00) Vital Signs Date Time Temp Pulse Resp B/P (MAP) Pulse Ox O2 Delivery O2 Flow Rate FiO2 08/07/25 14:07 84/49 08/07/25 14:00 97.1 59 27 84/49 (61) 98 97.1 08/07/25 13:00 60 19 94 Nasal Cannula* 2 28 08/07/25 11:55 98.2 62 18 91/52 (65) 90 98.2 08/07/25 11:00 60 26 91/51 (64) 90 08/07/25 10:00 97.6 60 18 93/49 (64) 94 97.6 08/07/25 08:00 62 18 95/60 (72) 98 08/07/25 07:46 104/68 08/07/25 07:25 68 22 94 Nasal Cannula* 2 28 08/07/25 07:25 97.6 68 22 104/68 (80) 96 97.6 08/07/25 06:33 20 98 Room Air* 0 21 08/07/25 05:06 71 16 109/67 (81) 95 08/07/25 02:22 70 08/07/25 01:47 18 96 Room Air* 0 21 08/07/25 01:47 18 98 Room Air* 0 21 08/07/25 01:33 64 08/07/25 01:27 97.6 66 16 111/71 97 97.6 08/07/25 01:24 64 Laboratory Tests Test 08/07/25 01:34 White Blood Count 8.7 10^3/uL (4.4-10.8) Medications Medications Dose Ordered Sig/Freddy Route Start Time Stop Time Status Last Admin Dose Admin Albuterol 2.5 mg ONCE ONCE NEB 08/07/25 05:30 08/07/25 05:31 DC 08/07/25 06:33 Furosemide 40 mg ONCE ONCE IV 08/07/25 07:15 08/07/25 07:16 DC 08/07/25 07:46 Prednisone 40 mg ONCE ONCE PO 08/07/25 05:30 08/07/25 05:31 DC 08/07/25 06:09 Sodium Chloride 250 ml @ 1,000 mls/hr Q15M ONCE IV 08/07/25 14:00 08/07/25 14:14 DC 08/07/25 14:03 Results Labs Test 08/07/25 12:12 08/07/25 02:26 08/07/25 01:34 Range/Units Influenza Type A Antigen Negative Negative Influenza Type B Antigen Negative Negative SARS-CoV-2 Antigen (Rapid) Negative NEGATIVE Troponin I High Sensitivity 10 </=54 ng/L White Blood Count 8.7 4.4-10.8 10^3/uL Red Blood Count 5.19 4.5-5.90 10^6/uL Hemoglobin 15.7 13.5-17.5 g/dL Hematocrit 47.8 41.0-53.0 % Mean Corpuscular Volume 92.1 80.0-100.0 fL Mean Corpuscular Hemoglobin 30.2 28.0-32.0 pg Mean Corpuscular Hemoglobin Concent 32.7 32.0-36.0 g/dL Red Cell Distribution Width 16.2 H 11.8-14.3 % Platelet Count 126 L 140-450 10^3/uL Mean Platelet Volume 8.5 6.9-10.8 fL Neutrophils (%) (Auto) 75.1 37.0-80.0 % Lymphocytes (%) (Auto) 12.7 10.0-50.0 % Monocytes (%) (Auto) 11.0 0.0-12.0 % Eosinophils (%) (Auto) 0.9 0.0-7.0 % Basophils (%) (Auto) 0.3 0.0-2.0 % Neutrophils # (Auto) 6.6 1.6-8.6 10 ^3/uL Lymphocytes # (Auto) 1.1 0.4-5.4 10 ^3/uL Monocytes # (Auto) 1.0 0-1.3 10 ^3/uL Eosinophils # (Auto) 0.1 0-0.8 10 ^3/uL Basophils # (Auto) 0 0-0.2 10 ^3/uL Nucleated Red Blood Cells 0.1 % Sodium Level 140 136-145 mmol/L Potassium Level 5.2 H 3.5-5.1 mmol/L Chloride Level 103 98-107 mmol/L Carbon Dioxide Level 23 20-31 mmol/L Anion Gap 14 5-15 Blood Urea Nitrogen 28 H 9-23 mg/dL Creatinine 3.35 H 0.700-1.30 mg/dL Glomerular Filtration Rate Calc 18 >90 mL/min BUN/Creatinine Ratio 8.4 L 10.0-20.0 Serum Glucose 208 H 74-106 mg/dL Calcium Level 8.9 8.7-10.4 mg/dL B-Type Natriuretic Peptide 4471.28 0-100 pg/mL Primary Diagnosis Shortness prophylaxis due to acute CHF exacerbation Plan Chest x-ray shows congestion Pt has been drinking more water than he is suppose to due to feel thirsty and couhging. Elevated BNP check ua, esr, crp, procalc Start Lasix 40 mg b.i.d. if SBP is greater than 95 Check echo of the heart to assess for CHF exacerbation Fluid restriction Strict in and out Daily weights Helped beta-keyla, losartan, Entresto, tamsulosin in view of hypotension Cardiology consult Nephrology consult for MICAELA on CKD Kidney ultrasound Gentle hydration if needed Full code Heparin for DVT prophylaxis No GI prophylaxis needed Plan discussed with: Patient Problems List: (1) Acute congestive heart failure Status: Acute Date of Service: Aug 07, 2025 Billing Provider: COOKIE ELIZABETH MD Common Visit Codes: [id number] INP/OBS CARE (HIGH) COOKIE ELIZABETH MD Aug 07, 2025 14:54
[2025-08-07] MEDS ORDERED: ACETAMINOPHEN 325 MG TAB PO PRN (15:00)
[2025-08-07] MEDS ORDERED: HYDROcodone-ACET 5/325MG TAB PO PRN (15:00)
[2025-08-07] MEDS ORDERED: DOCUSATE SOD 100 MG CAP PO PRN (15:00)
[2025-08-07] MEDS: DOBUTamine 1000MCG/ML 250 ML IV ONE ×2 (15:39→23:59)
--- NOTE | 2025-08-07 16:25 | DVHINCON2 ---
Date of service: Aug 07, [address] Solorzano Reason for Consultation Acute kidney injury History of Present Illness Patient is a 79-year-old male with past medical history significant Asthma, colon cancer Cancer, CHF, CKD followed at [place], COPD, and High Lipids is admitted for worsening shortness of breath and bilateral lower extremity edema. On admission patient found to have elevated BUN creatinine nephrology is consulted for acute kidney injury Surgical History: Appendectomy, CABG, [place] Past Medical History PAST MEDICAL HISTORY: Asthma, colon Cancer, CHF, CKD, COPD, High Lipids Past Surgical History Surgical History: Appendectomy, CABG, Pacemaker, colon surgery Allergies: Coded Allergies: Amoxicillin (Verified Allergy, Mild, 06/18/24) Erythromycin (Verified Allergy, Unknown, 09/10/24) Home Meds Active Scripts Furosemide (Lasix) 20 Mg Tb, 20 MG PO DAILY, #30 TAB Prov:IZA JOHN MD 01/03/15 Potassium Chloride (KLOR-CON TABLET) 20 Meq Tb, 8 MEQ PO DAILY, #30 TAB Prov:IZA JOHN MD 01/03/15 Metoprolol Tartrate (LOPRESSOR TABLET) 50 Mg Tb, 25 MG PO BID, #60 TAB Prov:IZA JOHN MD 01/03/15 [Losartan Potassium] 25 MG TB No Conflict Check, 25 MG PO DAILY, #30 TAB Prov:IZA JOHN MD 01/03/15 Aspirin (Asa) 81 Mg Ch, 81 MG PO DAILY, #30 TAB.EC Prov:IZA JOHN MD 01/03/15 Reported Medications Hydrocodone-Acetaminophen (Hydrocodone Bitartrate/AC 5-325 mg) 1 Tab Tab, 1 TAB PO, TAB 09/11/24 Bisoprolol Fumarate (Bisoprolol Fumarate) 5 Mg Tab, 10 MG PO BID, TAB 09/11/24 Potassium Chloride (POTASSIUM CHLORIDE CR) 10 Meq Tb, 10 MEQ PO BID, TAB 09/11/24 Amiodarone Hcl (Amiodarone Hcl) 200 Mg Tab, 200 MG PO DAILY for 30 Days 09/11/24 Sacubitril-Valsartan (Entresto 24-26 mg) 1 Tab Tab, 1 TAB PO DAILY, TAB 09/11/24 Omeprazole Magnesium (Omeprazole) 20 Mg Tab, 40 MG PO DAILY, TAB 09/11/24 Tamsulosin HCl (Tamsulosin Hydrochloride) 0.4 Mg Cap, 0.8 MG PO DAILY, CAP 09/11/24 Furosemide (Lasix) 40 Mg Tab, 40 MG PO BID, TAB 09/11/24 Spironolactone (Spironolactone) 25 Mg Tab, 25 MG PO DAILY, TAB 09/11/24 Empagliflozin (Jardiance) 25 Mg Tab, 25 MG PO DAILY, TAB 09/11/24 Current Medications Current Medications Medications (Trade) Dose Ordered Sig/Freddy Route PRN Reason Start Time Stop Time Status Last Admin Furosemide (Lasix Injection) 40 mg BID IV 08/07/25 22:00 Sodium Chloride (Saline Lock Ns) 10 ml Q8HR IV 08/07/25 22:00 Docusate Sodium (Colace Capsule) 100 mg BIDPRN PRN PO FOR CONSTIPATION 08/07/25 15:00 Acetaminophen (Tylenol Tablet) 650 mg Q6HP PRN PO PAIN SCALE 1-3 OR TEMP>100.4 08/07/25 15:00 Acetaminophen/ Hydrocodone Bitart ([place] 5/325MG Tab) 1 tab Q4HP PRN PO MODERATE PAIN (4-6 PAIN SCALE) 08/07/25 15:00 Ondansetron HCl (Zofran) 4 mg Q4HP PRN IV NAUSEA / VOMITING 08/07/25 15:00 Heparin Sodium (Porcine) 5,000 units Q12HR SC 08/07/25 22:00 Aspirin 81 mg DAILY PO 08/08/25 10:00 Empaglifozin (Jardiance) 25 mg DAILY PO 08/08/25 10:00 Patient Own Medication 40 mg DAILY PO 08/08/25 10:00 UNV Midodrine (Proamatine Tablet) 10 mg TID@0600,1200,1800 PO 08/07/25 18:00 Family History: FH: lung cancer G8 MOTHER Family history: Diabetes mellitus G8 MOTHER Unknown G8 FATHER Review of Systems All 12 item review of systems reviewed with the patient nonsignificant except what is mentioned in the history of present illness H&P Exam Vital Signs/I&O Vital Sign Date Time Temp Pulse Resp B/P (MAP) Pulse Ox O2 Delivery O2 Flow Rate FiO2 08/07/25 16:15 56 21 94/51 (65) 92 08/07/25 14:00 97.1 97.1 08/07/25 13:00 Nasal Cannula* 2 28 Physical Exam Moderate respiratory distress lungs bibasilar crackles Cardiac exam tachycardia GI soft nontender normal Extremity 2+ edema Neuro nonfocal Labs/Diagnostic Data Labs/Diagnostic Data Laboratory Tests Test 08/07/25 12:12 08/07/25 02:26 08/07/25 01:34 Range/Units Influenza Type A Antigen Negative Negative Influenza Type B Antigen Negative Negative SARS-CoV-2 Antigen (Rapid) Negative NEGATIVE Troponin I High Sensitivity 10 11 </=54 ng/L White Blood Count 8.7 4.4-10.8 10^3/uL Red Blood Count 5.19 4.5-5.90 10^6/uL Hemoglobin 15.7 13.5-17.5 g/dL Hematocrit 47.8 41.0-53.0 % Mean Corpuscular Volume 92.1 80.0-100.0 fL Mean Corpuscular Hemoglobin 30.2 28.0-32.0 pg Mean Corpuscular Hemoglobin Concent 32.7 32.0-36.0 g/dL Red Cell Distribution Width 16.2 H 11.8-14.3 % Platelet Count 126 L 140-450 10^3/uL Mean Platelet Volume 8.5 6.9-10.8 fL Neutrophils (%) (Auto) 75.1 37.0-80.0 % Lymphocytes (%) (Auto) 12.7 10.0-50.0 % Monocytes (%) (Auto) 11.0 0.0-12.0 % Eosinophils (%) (Auto) 0.9 0.0-7.0 % Basophils (%) (Auto) 0.3 0.0-2.0 % Neutrophils # (Auto) 6.6 1.6-8.6 10 ^3/uL Lymphocytes # (Auto) 1.1 0.4-5.4 10 ^3/uL Monocytes # (Auto) 1.0 0-1.3 10 ^3/uL Eosinophils # (Auto) 0.1 0-0.8 10 ^3/uL Basophils # (Auto) 0 0-0.2 10 ^3/uL Nucleated Red Blood Cells 0.1 % Sodium Level 140 136-145 mmol/L Potassium Level 5.2 H 3.5-5.1 mmol/L Chloride Level 103 98-107 mmol/L Carbon Dioxide Level 23 20-31 mmol/L Anion Gap 14 5-15 Blood Urea Nitrogen 28 H 9-23 mg/dL Creatinine 3.35 H 0.700-1.30 mg/dL Glomerular Filtration Rate Calc 18 >90 mL/min BUN/Creatinine Ratio 8.4 L 10.0-20.0 Serum Glucose 208 H 74-106 mg/dL Calcium Level 8.9 8.7-10.4 mg/dL B-Type Natriuretic Peptide 4471.28 0-100 pg/mL Assessment Acute kidney injury superimposed Chronic Kidney Disease secondary to hemodynamic mediated Congestive heart failure exacerbation Hypotension Hyperglycemia Hyperkalemia Recommendations Closely monitor fluid and electrolytes Avoid nephrotoxic medications Strict I&Os Check urinalysis urine lytes and protein excretion Kidney ultrasound reported bilateral echogenic kidney no obstruction I agree with diuresis Renal diet Insulin sliding scale Midodrine 10 mg p.o. t.i.d. Cardiology consult We will continue to follow Patient seen and examined by myself in the ER. I discussed my plan of care with the patient, his son and the primary nurse at the bedside I would like to thank Dr. Solorzano for the consult, will follow up Plan discussed with: Patient JERALD PATRICK MD Aug 07, 2025 16:25
--- NOTE | 2025-08-07 16:44 | DVHINCON2 ---
Date Seen: Aug 07, 2025 Referring Physician MD Rashad Reason for Consultation CHF exacerbation History of Present Illness This is a 79-year-old male patient who presents to emergency room with chief complaint of worsening shortness of breath for two weeks. Cardiology has been consulted at this time for CHF exacerbation. Initial twelve lead electrocardiogram reveals AV paced rhythm with underlying right bundle branch block. Troponin levels have been negative. Initial BNP level of 4471.28pg/mL. Significant past medical history includes coronary artery disease status post triple-vessel CABG in 2014, congestive heart failure, presence of ICD (Medtronic), hypertension, dyslipidemia, type 2 diabetes mellitus, chronic kidney disease, BPH, and history of tobacco use. The patient follows up with a radio director within the [facility]. Of note, patient's medication significant for amiodarone. Patient's denies any history of arrhythmias. The patient also admits to dietary noncompliance and states he knows he has been eating high sodium foods within the last few weeks. Past Medical History Past medical history reviewed. No other significant than mentioned above. Past Surgical History Triple-vessel CABG in 2015 AICD in 2022 Left knee replacement Appendectomy Family History: FH: lung cancer G8 MOTHER Family history: Diabetes mellitus G8 MOTHER Unknown G8 FATHER Family History Family history reviewed. Social History Patient has a 12.5 pack-year history, quit smoking in 1984 Denies illicit drug use Denies alcohol use Allergies: Coded Allergies: Amoxicillin (Verified Allergy, Mild, 06/18/24) Erythromycin (Verified Allergy, Unknown, 09/10/24) Home Meds Active Scripts Furosemide (Lasix) 20 Mg Tb, 20 MG PO DAILY, #30 TAB Prov:IZA JOHN MD 01/03/15 Potassium Chloride (KLOR-CON TABLET) 20 Meq Tb, 8 MEQ PO DAILY, #30 TAB Prov:IZA JOHN MD 01/03/15 Metoprolol Tartrate (LOPRESSOR TABLET) 50 Mg Tb, 25 MG PO BID, #60 TAB Prov:IZA JOHN MD 01/03/15 [Losartan Potassium] 25 MG TB No Conflict Check, 25 MG PO DAILY, #30 TAB Prov:IZA JOHN MD 01/03/15 Aspirin (Asa) 81 Mg Ch, 81 MG PO DAILY, #30 TAB.EC Prov:IZA JOHN MD 01/03/15 Reported Medications Hydrocodone-Acetaminophen (Hydrocodone Bitartrate/AC 5-325 mg) 1 Tab Tab, 1 TAB PO, TAB 09/11/24 Bisoprolol Fumarate (Bisoprolol Fumarate) 5 Mg Tab, 10 MG PO BID, TAB 09/11/24 Potassium Chloride (POTASSIUM CHLORIDE CR) 10 Meq Tb, 10 MEQ PO BID, TAB 09/11/24 Amiodarone Hcl (Amiodarone Hcl) 200 Mg Tab, 200 MG PO DAILY for 30 Days 09/11/24 Sacubitril-Valsartan (Entresto 24-26 mg) 1 Tab Tab, 1 TAB PO DAILY, TAB 09/11/24 Omeprazole Magnesium (Omeprazole) 20 Mg Tab, 40 MG PO DAILY, TAB 09/11/24 Tamsulosin HCl (Tamsulosin Hydrochloride) 0.4 Mg Cap, 0.8 MG PO DAILY, CAP 09/11/24 Furosemide (Lasix) 40 Mg Tab, 40 MG PO BID, TAB 09/11/24 Spironolactone (Spironolactone) 25 Mg Tab, 25 MG PO DAILY, TAB 09/11/24 Empagliflozin (Jardiance) 25 Mg Tab, 25 MG PO DAILY, TAB 09/11/24 Home Meds Home medications reviewed. Current Medications Current Medications Medications (Trade) Dose Ordered Sig/Freddy Route PRN Reason Start Time Stop Time Status Last Admin Furosemide (Lasix Injection) 40 mg BID IV 08/07/25 22:00 Sodium Chloride (Saline Lock Ns) 10 ml Q8HR IV 08/07/25 22:00 Docusate Sodium (Colace Capsule) 100 mg BIDPRN PRN PO FOR CONSTIPATION 08/07/25 15:00 Acetaminophen (Tylenol Tablet) 650 mg Q6HP PRN PO PAIN SCALE 1-3 OR TEMP>100.4 08/07/25 15:00 Acetaminophen/ Hydrocodone Bitart ([place] 5/325MG Tab) 1 tab Q4HP PRN PO MODERATE PAIN (4-6 PAIN SCALE) 08/07/25 15:00 Ondansetron HCl (Zofran) 4 mg Q4HP PRN IV NAUSEA / VOMITING 08/07/25 15:00 Heparin Sodium (Porcine) 5,000 units Q12HR SC 08/07/25 22:00 Aspirin 81 mg DAILY PO 08/08/25 10:00 Empaglifozin (Jardiance) 25 mg DAILY PO 08/08/25 10:00 Patient Own Medication 40 mg DAILY PO 08/08/25 10:00 UNV Midodrine (Proamatine Tablet) 10 mg TID@0600,1200,1800 PO 08/07/25 18:00 Review of Systems Constitutional: No symptom reported Ears, Nose, & Throat: No symptom reported Eyes: No symptom reported Neurological: No symptoms reported Pulmonary/Respiratory: Shortness of breath Cardiovascular: No symptom reported Gastrointestinal: No symptom reported Genitourinary: No symptom reported Musculoskeletal: No symptom reported Skin: No symptom reported Psychiatric: No symptom reported Endocrine: No symptom reported Hematologic/Lymphatic: No symptom reported Vital Signs Vital Signs Date Time Temp Pulse Resp B/P (MAP) Pulse Ox O2 Delivery O2 Flow Rate FiO2 08/07/25 16:15 56 21 94/51 (65) 92 08/07/25 14:00 97.1 97.1 08/07/25 13:00 Nasal Cannula* 2 28 Physical Exam General Appearance: Cooperative. Morbidly obese Pulmonary/Respiratory: Diminished throughout Cardiovascular/Chest: Regular rate and rhythm. Peripheral Pulses: 2+ Radial (R). 2+ Radial (L). 2+ Pedal (R). 2+ Pedal (L) Abdominal Exam: Normal bowel sounds. Large, distended abdomen Ankle Exam: Negative ankle edema Lower extremities: Negative lower extremity edema Neuro/Mental Status: A/OX4, coherent. Thoughts/Psych: Normal thought pattern. Appropriate mood and affect. Good judgment and insight. Appearance: No acute distress. Skin Exam: Normal inspection. Normal color. Warm and dry. Labs/Diagnostic Data Labs Test 08/07/25 12:12 08/07/25 02:26 08/07/25 01:34 Range/Units Influenza Type A Antigen Negative Negative Influenza Type B Antigen Negative Negative SARS-CoV-2 Antigen (Rapid) Negative NEGATIVE Troponin I High Sensitivity 10 </=54 ng/L White Blood Count 8.7 4.4-10.8 10^3/uL Red Blood Count 5.19 4.5-5.90 10^6/uL Hemoglobin 15.7 13.5-17.5 g/dL Hematocrit 47.8 41.0-53.0 % Mean Corpuscular Volume 92.1 80.0-100.0 fL Mean Corpuscular Hemoglobin 30.2 28.0-32.0 pg Mean Corpuscular Hemoglobin Concent 32.7 32.0-36.0 g/dL Red Cell Distribution Width 16.2 H 11.8-14.3 % Platelet Count 126 L 140-450 10^3/uL Mean Platelet Volume 8.5 6.9-10.8 fL Neutrophils (%) (Auto) 75.1 37.0-80.0 % Lymphocytes (%) (Auto) 12.7 10.0-50.0 % Monocytes (%) (Auto) 11.0 0.0-12.0 % Eosinophils (%) (Auto) 0.9 0.0-7.0 % Basophils (%) (Auto) 0.3 0.0-2.0 % Neutrophils # (Auto) 6.6 1.6-8.6 10 ^3/uL Lymphocytes # (Auto) 1.1 0.4-5.4 10 ^3/uL Monocytes # (Auto) 1.0 0-1.3 10 ^3/uL Eosinophils # (Auto) 0.1 0-0.8 10 ^3/uL Basophils # (Auto) 0 0-0.2 10 ^3/uL Nucleated Red Blood Cells 0.1 % Sodium Level 140 136-145 mmol/L Potassium Level 5.2 H 3.5-5.1 mmol/L Chloride Level 103 98-107 mmol/L Carbon Dioxide Level 23 20-31 mmol/L Anion Gap 14 5-15 Blood Urea Nitrogen 28 H 9-23 mg/dL Creatinine 3.35 H 0.700-1.30 mg/dL Glomerular Filtration Rate Calc 18 >90 mL/min BUN/Creatinine Ratio 8.4 L 10.0-20.0 Serum Glucose 208 H 74-106 mg/dL Calcium Level 8.9 8.7-10.4 mg/dL B-Type Natriuretic Peptide 4471.28 0-100 pg/mL Assessment Acute on chronic decompensated HFrEF, NYHA class IV Severe coronary artery disease status post triple-vessel CABG Presence of AICD (Medtronic) Hypertension Dyslipidemia Hyperkalemia Type 2 diabetes mellitus Chronic kidney disease BPH History of tobacco use Dietary noncompliance Plan/Recommendation We will continue following plan/recommendations (Dr. Vincent): * Transthoracic echocardiogram to evaluate cardiac function * Previous transthoracic echocardiogram from 09/10/2024 reveals an EF of 25% * Unable to initiate guideline directed therapy for CHF at this time given poor renal function * Avoid Midodrine as this is contraindicated in HFrEF patients * Continue Dobutamine drip for inotropic support * Aggressive diuresis as tolerated * Strict intake and output, daily weights, maintain fluid restriction * AICD device interrogation * Close Cardiac surveillance * Nephrology consult and recommendations Thank you for allowing us to care for this patient. Please call with any questions or concerns. Critical care time spent: 44 minutes This medical document was created using an electronic medical record system with voice recognition software and computerized dictation system. Although this document has been carefully reviewed, there might still be some phonetic and typographical errors. Occasional wrong-word or ``sound-alike substitutions may have occurred due to the inherent limitations of voice recognition software. These areas are purely typographical due to imperfections of the software programs and do not reflect any compromise in the patient's medical care. Please read the chart carefully and recognize, using context, where these substitutions have occurred. Plan discussed with: Patient NYHA Physical activity limitations: Class4(Severe)discomfort (w any activit,symptoms at rest) Date of Service: Aug 07, 2025 Billing Provider: SIMON WETZEL Cardiology Common Codes: 65317-[id number] INP/OBS CARE (High) Cardiology Consultation Codes: 43341-[id number] CONSULT <45MIN SIMON WETZEL Aug 07, 2025 16:44
[2025-08-07] MEDS: ONDANSETRON HCL 4 MG/2 ML VIAL IV PRN (17:04)
[2025-08-07 17:18] LABS: Magnesium 2.3 mg/dL (1.6-2.6); Triglycerides 68.0 mg/dL (< 150)
[2025-08-07 17:20] LABS: Cholesterol 78.0 mg/dL (< 200)
[2025-08-07 17:21] LABS: HDL Cholesterol 34.0 mg/dL (40-59)
[2025-08-07] MEDS ORDERED: MIDODRINE HCL 10 MG TAB PO SCH (18:00)
[2025-08-07] MEDS: SODIUM CHLOR 0.9% PF (SALINE LOCK) 10ML VIAL/SYR IV SCH (23:02)
[2025-08-07] MEDS: HEPARIN SODIUM (PORCINE) 5000 UNITS/ML 1ML VIAL SC SCH (23:03)
--- NOTE | 2025-08-07 23:35 | DVHINCON2 ---
Date of service: Aug 07, 2025 Referring Physician MD Rashad Reason for Consultation CHF exacerbation History of Present Illness This is a 79-year-old male with a past medical history of coronary artery disease status post triple-vessel CABG in 2014, congestive heart failure, presence of ICD (Medtronic), hypertension, dyslipidemia, type 2 diabetes mellitus, chronic kidney disease, BPH, and history of tobacco use who presents to the ED with a complaint of worsening shortness of breath for two weeks. Cardiology has been consulted at this time for CHF exacerbation. Initial twelve lead electrocardiogram reveals AV paced rhythm with underlying right bundle branch block. Troponin levels have been negative. Initial BNP level of 4471.28pg/mL. The patient follows up with a disposal plant operator within the [facility]. Of note, patient's medication significant for amiodarone. Patient's denies any history of arrhythmias. The patient also admits to dietary noncompliance and states he knows he has been eating high sodium foods within the last few weeks. HGB A1C 7.3. Chest x-ray showed cardiomegaly. Past Medical History Past medical history reviewed. No other significant than mentioned above. Past Surgical History Triple-vessel CABG in 2015 AICD in 2022 Left knee replacement Appendectomy Family History: FH: lung cancer G8 MOTHER Family history: Diabetes mellitus G8 MOTHER Unknown G8 FATHER Allergies: Coded Allergies: Amoxicillin (Verified Allergy, Mild, 06/18/24) Erythromycin (Verified Allergy, Unknown, 09/10/24) Home Meds Active Scripts Furosemide (Lasix) 20 Mg Tb, 20 MG PO DAILY, #30 TAB Prov:IZA JOHN MD 01/03/15 Potassium Chloride (KLOR-CON TABLET) 20 Meq Tb, 8 MEQ PO DAILY, #30 TAB Prov:IZA JOHN MD 01/03/15 Metoprolol Tartrate (LOPRESSOR TABLET) 50 Mg Tb, 25 MG PO BID, #60 TAB Prov:IZA JOHN MD 01/03/15 [Losartan Potassium] 25 MG TB No Conflict Check, 25 MG PO DAILY, #30 TAB Prov:IZA JOHN MD 01/03/15 Aspirin (Asa) 81 Mg Ch, 81 MG PO DAILY, #30 TAB.EC Prov:IZA JOHN MD 01/03/15 Reported Medications Hydrocodone-Acetaminophen (Hydrocodone Bitartrate/AC 5-325 mg) 1 Tab Tab, 1 TAB PO, TAB 09/11/24 Bisoprolol Fumarate (Bisoprolol Fumarate) 5 Mg Tab, 10 MG PO BID, TAB 09/11/24 Potassium Chloride (POTASSIUM CHLORIDE CR) 10 Meq Tb, 10 MEQ PO BID, TAB 09/11/24 Amiodarone Hcl (Amiodarone Hcl) 200 Mg Tab, 200 MG PO DAILY for 30 Days 09/11/24 Sacubitril-Valsartan (Entresto 24-26 mg) 1 Tab Tab, 1 TAB PO DAILY, TAB 09/11/24 Omeprazole Magnesium (Omeprazole) 20 Mg Tab, 40 MG PO DAILY, TAB 09/11/24 Tamsulosin HCl (Tamsulosin Hydrochloride) 0.4 Mg Cap, 0.8 MG PO DAILY, CAP 09/11/24 Furosemide (Lasix) 40 Mg Tab, 40 MG PO BID, TAB 09/11/24 Spironolactone (Spironolactone) 25 Mg Tab, 25 MG PO DAILY, TAB 09/11/24 Empagliflozin (Jardiance) 25 Mg Tab, 25 MG PO DAILY, TAB 09/11/24 Current Medications Current Medications Medications (Trade) Dose Ordered Sig/Freddy Route PRN Reason Start Time Stop Time Status Last Admin Furosemide (Lasix Injection) 40 mg BID IV 08/07/25 22:00 Sodium Chloride (Saline Lock Ns) 10 ml Q8HR IV 08/07/25 22:00 Docusate Sodium (Colace Capsule) 100 mg BIDPRN PRN PO FOR CONSTIPATION 08/07/25 15:00 Acetaminophen (Tylenol Tablet) 650 mg Q6HP PRN PO PAIN SCALE 1-3 OR TEMP>100.4 08/07/25 15:00 Acetaminophen/ Hydrocodone Bitart ([place] 5/325MG Tab) 1 tab Q4HP PRN PO MODERATE PAIN (4-6 PAIN SCALE) 08/07/25 15:00 Ondansetron HCl (Zofran) 4 mg Q4HP PRN IV NAUSEA / VOMITING 08/07/25 15:00 08/07/25 17:04 Heparin Sodium (Porcine) 5,000 units Q12HR SC 08/07/25 22:00 Aspirin 81 mg DAILY PO 08/08/25 10:00 Empaglifozin (Jardiance) 25 mg DAILY PO 08/08/25 10:00 Patient Own Medication 40 mg DAILY PO 08/08/25 10:00 Midodrine (Proamatine Tablet) 10 mg TID@0600,1200,1800 PO 08/07/25 18:00 08/07/25 16:53 DC Review of Systems Constitutional: No symptom reported Ears, Nose, & Throat: No symptom reported Eyes: No symptom reported Neurological: No symptoms reported Pulmonary/Respiratory: Shortness of breath Cardiovascular: No symptom reported Gastrointestinal: No symptom reported Genitourinary: No symptom reported Musculoskeletal: No symptom reported Skin: No symptom reported Psychiatric: No symptom reported Endocrine: No symptom reported Hematologic/Lymphatic: No symptom reported Vital Signs Vital Signs Date Time Temp Pulse Resp B/P (MAP) Pulse Ox O2 Delivery O2 Flow Rate FiO2 08/07/25 18:45 60 23 103/53 (70) 95 08/07/25 18:38 98.1 98.1 08/07/25 18:30 Nasal Cannula* 2 28 Physical Exam GENERAL: Alert and oriented x 3. Morbidly obese. EYES: PERRL, EOMI. Anicteric. HENT: Moist mucous membranes. LUNGS: Diminished breath sounds. CARDIOVASCULAR: Regular rate and rhythm. ABDOMEN: Soft, nontender and nondistended. EXTREMITIES: No edema. NEUROLOGIC: No focal neurological deficits. SKIN: Warm, dry. Labs/Diagnostic Data Labs Test 08/07/25 18:26 08/07/25 12:12 08/07/25 02:26 08/07/25 01:35 Range/Units Influenza Type A Antigen Negative Negative Influenza Type B Antigen Negative Negative SARS-CoV-2 Antigen (Rapid) Negative NEGATIVE Magnesium Level 2.3 1.6-2.6 mg/dL Troponin I High Sensitivity 10 </=54 ng/L Triglycerides Level 68 < 150 mg/dL Cholesterol Level 78 < 200 mg/dL LDL Cholesterol 35 < 100 mg/dL HDL Cholesterol 34 L 40-59 mg/dL Thyroid Stimulating Hormone (TSH) 17.36 H 0.55-4.78 uIU/mL Hemoglobin A1c 7.3 H <5.7 % A1C Test 08/07/25 01:34 Range/Units White Blood Count 8.7 4.4-10.8 10^3/uL Red Blood Count 5.19 4.5-5.90 10^6/uL Hemoglobin 15.7 13.5-17.5 g/dL Hematocrit 47.8 41.0-53.0 % Mean Corpuscular Volume 92.1 80.0-100.0 fL Mean Corpuscular Hemoglobin 30.2 28.0-32.0 pg Mean Corpuscular Hemoglobin Concent 32.7 32.0-36.0 g/dL Red Cell Distribution Width 16.2 H 11.8-14.3 % Platelet Count 126 L 140-450 10^3/uL Mean Platelet Volume 8.5 6.9-10.8 fL Neutrophils (%) (Auto) 75.1 37.0-80.0 % Lymphocytes (%) (Auto) 12.7 10.0-50.0 % Monocytes (%) (Auto) 11.0 0.0-12.0 % Eosinophils (%) (Auto) 0.9 0.0-7.0 % Basophils (%) (Auto) 0.3 0.0-2.0 % Neutrophils # (Auto) 6.6 1.6-8.6 10 ^3/uL Lymphocytes # (Auto) 1.1 0.4-5.4 10 ^3/uL Monocytes # (Auto) 1.0 0-1.3 10 ^3/uL Eosinophils # (Auto) 0.1 0-0.8 10 ^3/uL Basophils # (Auto) 0 0-0.2 10 ^3/uL Nucleated Red Blood Cells 0.1 % Sodium Level 140 136-145 mmol/L Potassium Level 5.2 H 3.5-5.1 mmol/L Chloride Level 103 98-107 mmol/L Carbon Dioxide Level 23 20-31 mmol/L Anion Gap 14 5-15 Blood Urea Nitrogen 28 H 9-23 mg/dL Creatinine 3.35 H 0.700-1.30 mg/dL Glomerular Filtration Rate Calc 18 >90 mL/min BUN/Creatinine Ratio 8.4 L 10.0-20.0 Serum Glucose 208 H 74-106 mg/dL Calcium Level 8.9 8.7-10.4 mg/dL B-Type Natriuretic Peptide 4471.28 0-100 pg/mL Assessment Acute on chronic decompensated HFrEF, NYHA class IV. Severe coronary artery disease status post triple-vessel CABG. Presence of AICD (Medtronic). Hypertension. Dyslipidemia. Hyperkalemia. Type 2 diabetes mellitus. Chronic kidney disease. BPH. History of tobacco use. Dietary noncompliance. Plan/Recommendation I agree with your ongoing assessment and care of plan. Patient has been seen by Sigrid Chaves NP on my behalf, her and I discussed the plan with the patient. Transthoracic echocardiogram to evaluate cardiac function. Previous transthoracic echocardiogram from 09/10/2024 reveals an EF of 25%. Unable to initiate guideline directed therapy for CHF at this time given poor renal function. Avoid Midodrine as this is contraindicated in HFrEF patients. Continue Dobutamine drip for inotropic support. Aggressive diuresis as tolerated. Strict intake and output, daily weights, maintain fluid restriction. AICD device interrogation. Close Cardiac surveillance. Nephrology consult and recommendations. Additional plan as per the hospital course. Visit Coding Cardiology Date of Service: Aug 07, 2025 Billing Provider: STEF VELASQUEZ MD Cardiology Common Codes: [id number] INP/OBS CARE (High) Cardiology Consultation Codes: [id number] CONSULT <45MIN Plan discussed with: Patient NYHA Physical activity limitations: Class4(Severe)discomfort STEF VELASQUEZ MD Aug 07, 2025 19:19
[2025-08-08] VITALS (51 sets, daily range): BP systolic 82–152; BP diastolic 45–99; PULSE 6–77; RESP 10–28; TEMP 97.5–98.3; O2SAT 83–100
--- NOTE | 2025-08-08 01:04 | DVHSR ---
APPROVED REPORT EXAM: Two-dimensional and M-mode echocardiogram with Doppler and color Doppler. Blood Pressure: 91/52 mmHg INDICATION SOB Suspect CHF exacerbation Surgery/Intervention Pacemaker: CABG: RISK FACTORS Height: 5' 7", Weight: 210 DIMENSIONS LVDd6.6 (3.8-5.7cm)LA (2D)5.5 (1.9-4.0cm)Aortic Root4.0 (2.0-3.7cm) LVDs5.9 (2.5-4.0cm)LA (MM) (1.9-4.0cm)Aortic Cusp Exc1.7 (1.5-2.0cm) EF (%) 20.0 (55-70%)Rt. Atrium6.0 (1.9-4.0cm)Asc. Aorta cm IVSd1.0 (0.7-1.1cm)RV (D) (1.8-2.4cm) PWd1.0 (0.7-1.1cm) Mitral Valve MitralMitral Stenosis E wave1.00m/sMV Mean GR.mmHg A wave0.60m/sMV Peak GR.mmHg E/A ratio1.72D MVAcm2 Aortic Valve Aortic ValveAortic Stenosis V10.50m/Kirstie Mean GR.2mmHg V20.90m/Kirstie Peak GR.4mmHg LVOT Diameter2.0 (1.8-2.4cm)Doppler AVA1.74cm2 AI P 1/2 [id number] Pulmonic Valve V20.50m/s Tricuspid Valve TR Velocity2.50m/s [id number] Conclusion DILATED ALL CARDIAC CHAMBERS LV EF IS ONLY 20% MODERATELY CALCIFID AORTIC LEAFLETS NO EFFUSION
[2025-08-08 05:58] LABS: Hematocrit 43.8 % (41.0-53.0); Hemoglobin 14.5 g/dL (13.5-17.5); Mean Corpuscular Hemoglobin 30.5 pg (28.0-32.0); Mean Corpuscular Volume 92.1 fL (80.0-100.0); Nucleated Red Blood Cells % 0.1 %
[2025-08-08 06:21] LABS: Alkaline Phosphatase 112 U/L (46-116); Anion Gap 16 (5-15); BUN/Creatinine Ratio 15.9 (10.0-20.0); Carbon Dioxide 20 mmol/L (20-31); Chloride 100 mmol/L (98-107); Magnesium 2.5 mg/dL (1.6-2.6); Sodium 136 mmol/L (136-145); Total Protein 5.9 g/dL (5.7-8.2)
[2025-08-08 06:22] LABS: Albumin 3.6 g/dL (3.2-4.8)
[2025-08-08 06:32] LABS: Bilirubin, Total 2.5 mg/dL (0.2-1.0); Blood Urea Nitrogen 54 mg/dL (9-23); Calcium 8.5 mg/dL (8.7-10.4); Glucose 186 mg/dL (74-106); Potassium 5.2 mmol/L (3.5-5.1)
[2025-08-08 06:37] LABS: Alanine Aminotransferase 2596 U/L (7-40)
--- NOTE | 2025-08-08 09:18 | DVH ---
Bilateral lower extremity venous duplex Clinical History: ble edema, elevated d-dimer Comparison: None Technique: Duplex Doppler evaluation of the deep venous systems of both lower extremities from the common femora l veins to the popliteal veins including color Doppler and spectral/pulsed waveform analysis was perf ormed. Findings: RIGHT SIDE: The common femoral vein demonstrates appropriate compressibility and waveform variability. There is compressibility/patency of the great saphenous vein at the proximal thigh. The femoral vein demonstrates appropriate compressibility and waveform variability. The deep femoral vein demonstrates appropriate compressibility and waveform variability. The popliteal vein demonstrates appropriate compressibility and waveform variability. There is normal compressibility at the tibioperoneal trunk. LEFT SIDE: The common femoral vein demonstrates appropriate compressibility and waveform variability. There is compressibility/patency of the great saphenous vein at the proximal thigh. The femoral vein demonstrates appropriate compressibility and waveform variability. The deep femoral vein demonstrates appropriate compressibility and waveform variability. The popliteal vein demonstrates appropriate compressibility and waveform variability. There is normal compressibility at the tibioperoneal trunk. Impression: No right or left femoropopliteal venous thrombosis.
[2025-08-08] MEDS: EMPAGLIFLOZIN 10 MG TAB PO SCH (09:33)
--- NOTE | 2025-08-08 09:57 | DVHPN2 ---
Consult Progress Note Subjective Other Systems: Patient in paced rhythm on cardiac cath technician Objective vital signs Vital Sign Date Time Temp Pulse Resp B/P (MAP) Pulse Ox O2 Delivery O2 Flow Rate FiO2 08/08/25 09:32 89/48 08/08/25 07:15 64 23 88 08/08/25 06:00 Nasal Cannula* 2 28 08/08/25 04:01 97.5 97.5 Total Intake and Output 08/07/25 08/07/25 08/08/25 15:00 23:00 07:00 Intake Total 202.09 ml 707.24 ml Output Total 480 ml Balance 202.09 ml 227.24 ml medications Current Medications Medications Dose Ordered Sig/Freddy Route Start Time Stop Time Status Last Admin Dose Admin Furosemide 40 mg BID IV 08/07/25 22:00 08/08/25 09:32 40 MG Sodium Chloride 10 ml Q8HR IV 08/07/25 22:00 08/08/25 07:02 10 ML Docusate Sodium 100 mg BIDPRN PRN PO 08/07/25 15:00 Acetaminophen 650 mg Q6HP PRN PO 08/07/25 15:00 Acetaminophen/ Hydrocodone Bitart 1 tab Q4HP PRN PO 08/07/25 15:00 Ondansetron HCl 4 mg Q4HP PRN IV 08/07/25 15:00 08/07/25 17:04 4 MG Heparin Sodium (Porcine) 5,000 units Q12HR SC 08/07/25 22:00 08/07/25 23:03 5,000 UNITS Aspirin 81 mg DAILY PO 08/08/25 10:00 Empaglifozin 25 mg DAILY PO 08/08/25 10:00 08/08/25 09:33 25 MG Patient Own Medication 40 mg DAILY PO 08/08/25 10:00 Examination: GENERAL:Abnormal (Generalized weakness), LUNGS:Normal, CVS:Normal, NEURO:Normal laboratory and microbiology Laboratory Tests 08/08/25 05:00 Test 08/08/25 05:00 Range/Units Serum Glucose 186 H 74-106 mg/dL Problem List/Assessment/Plan Problem List/Assessment/Plan 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 Vincent): * Transthoracic echocardiogram reveals EF of 20% * Avoid Midodrine as this is contraindicated in HFrEF patients * Dobutamine discontinued * Unable to initiate full guideline directed medical therapy at this time given suboptimal blood pressures and poor renal function * Add low-dose Beta keyla with stable BP * Aggressive diuresis as tolerated * Strict intake and output, daily weights, maintain fluid restriction * AICD device interrogation----still pending * Close Cardiac surveillance * Nephrology consult and recommendations Thank you for allowing us to care for this patient. Please call with any questions or concerns. Critical care time spent: 38 minutes.This medical document was created using an electronic medical record system with voice recognition software and computerized dictation system. Although this document has been carefully reviewed, there might still be some phonetic and typographical errors. Occasional wrong-word or ``sound-alike substitutions may have occurred due to the inherent limitations of voice recognition software. These areas are purely typographical due to imperfections of the software programs and do not reflect any compromise in the patient's medical care. Please read the chart carefully and recognize, using context, where these substitutions have occurred. Plan discussed with: Patient, Other (Bedside RN) Date of Service: Aug 08, 2025 Billing Provider: SIMON WETZEL Common Visit Codes: [id number] CARE 30-74 MIN SIMON WETZEL Aug 08, 2025 09:57
[2025-08-08] MEDS ORDERED: OMEPRAZOLE MAGNESIUM 40 MG PO SCH (10:00)
[2025-08-08 10:13] LABS: Free T3 1.83 pg/mL (2.3-4.2)
[2025-08-08 10:14] LABS: Free T4 (Free Thyroxine) 1.54 ng/dL (0.89-1.76)
[2025-08-08] MEDS ORDERED: DEXTROSE (50%) 50ML SYRG IV PRN (10:15)
--- NOTE | 2025-08-08 10:19 | DVHPN2 ---
Subjective Patient reports that his breathing has improved. Reviewed: Care Plan, H&P, Labs, Medications, Previous Orders Changes from previous H/P or p: No Changes General: Per HPI Objective Vitals Vital Signs Date Time Temp Pulse Resp B/P (MAP) Pulse Ox O2 Delivery O2 Flow Rate FiO2 08/08/25 09:32 89/48 08/08/25 07:15 64 23 88 08/08/25 06:00 Nasal Cannula* 2 28 08/08/25 04:01 97.5 97.5 Intake/Output Intake and Output 08/08/25 07:00 Intake Total 909.33 ml Output Total 480 ml Balance 429.33 ml Intake Oral 650 ml IV Total 259.33 ml Output Urine Total 480 ml # Bowel Movements 1 General Appearance: Alert, Oriented X3, Cooperative, mild distress, Other (Obese) HEENT: Atraumatic, PERRLA Lungs: Clear to auscultation, Normal air movement Cardiovascular: Normal S1, Normal S2 Abdomen: Normal bowel sounds, Soft, No tenderness Genitourinary: No Apparent Abnormalities Musculoskeletal: Normal sensory function, Normal motor function Neuro: Normal gait, Normal speech Skin: Dry, Intact Psych/Mental Status: Mental status NL, Mood NL Medications Current Medications Medications Dose Ordered Sig/Freddy Route Start Time Stop Time Status Last Admin Dose Admin Furosemide 40 mg BID IV 08/07/25 22:00 08/08/25 09:32 40 MG Sodium Chloride 10 ml Q8HR IV 08/07/25 22:00 08/08/25 07:02 10 ML Docusate Sodium 100 mg BIDPRN PRN PO 08/07/25 15:00 Acetaminophen 650 mg Q6HP PRN PO 08/07/25 15:00 Acetaminophen/ Hydrocodone Bitart 1 tab Q4HP PRN PO 08/07/25 15:00 Ondansetron HCl 4 mg Q4HP PRN IV 08/07/25 15:00 08/07/25 17:04 4 MG Aspirin 81 mg DAILY PO 08/08/25 10:00 Empaglifozin 25 mg DAILY PO 08/08/25 10:00 08/08/25 09:33 25 MG Pantoprazole Sodium 40 mg DAILY@0600 PO 08/09/25 06:00 UNV Laboratory Results Laboratory Tests 08/08/25 05:00 Chemistry Test 08/08/25 05:00 Albumin 3.6 g/dL (3.2-4.8) Calcium Level 8.5 mg/dL (8.7-10.4) L Magnesium Level 2.5 mg/dL (1.6-2.6) Total Protein 5.9 g/dL (5.7-8.2) Coagulation Test 08/07/25 18:26 D-Dimer, Quantitative 7.49 mg/L FEU (0.0-0.49) H LFT Test 08/08/25 05:00 Alanine Aminotransferase (ALT) 2596 U/L (7-40) H Alkaline Phosphatase 112 U/L (46-116) Aspartate Amino Transferase (AST) 4105 U/L (13-40) H Total Bilirubin 2.5 mg/dL (0.2-1.0) H Labs and/or images reviewed: Labs reviewed by me, Image(s) reviewed by me Assessment/Plan Assessment/Plan Impression: -acute hypoxic respiratory failure -acute on chronic systolic heart failure -coronary artery disease with previous CABG -status post ICD placement -obesity -diabetes mellitus -asthma -CKD stage 4 -transaminitis Plan: -continue IV diuresis -nephrology consultation: Recommendations reviewed -cardiology consultation: Recommendations reviewed -hold guideline directed medical therapy other than GLP 1 given patient's renal function and current blood pressure -Dobutrex drip stopped. -regular insulin sliding scale -liver ultrasound -patient unstable to transfer to [facility] at this time. We will re-evaluate tomorrow. Critical care time spent with patient discussing and formulating plan of care: 40 minutes. This does not include time spent performing procedures. This medical document was created using an electronic medical record system with Interview dictation system. Although this document has been carefully reviewed, there may still be some phonetic and typographical errors. These areas are purely typographical due to imperfections of the software programs, and do not reflect any compromise in the patient's medical care. Plan discussed with: Patient, Other (RN) My Orders Orders - ERNESTO LIND FOOD SUPERVISOR Procedure Category Date Status Time Sodium Zirconium PHA 08/08/25 Logged Cyclosilicate 10:00 LIVER US 08/08/25 Logged 09:54 Pantoprazole Tablet PHA 08/09/25 Logged (Protonix Tablet) 06:00 Cardiac DIET 08/08/25 Transmitted Diet-2gna,Lofat,Lochol Lunch * Marketing Information Manager CONS 08/08/25 Transmitted Consult Urinalysis LAB 08/08/25 Logged 10:12 Urine Bacterial KVNG 08/08/25 Logged Culture 10:12 Sequential JIM 08/08/25 In Process Compression Device 10:12 Levalbuterol Hcl PHA 08/08/25 Verified (Xopenex Medneb) 12:00 Date of Service: Aug 08, 2025 Billing Provider: ERNESTO LIND NP Common Visit Codes: [id number] CARE 30-74 MIN ERNESTO LIND NP Aug 08, 2025 10:19
[2025-08-08] MEDS: LEVALBUTEROL HCL 1.25 MG/3 ML NEB NEB SCH (11:12)
[2025-08-08] MEDS: SODIUM ZIRCONIUM CYCL 10 GM PAK PO ONE (11:26)
[2025-08-08] MEDS: ACCU-CHEK COMFORT CURVE STRIP VI SCH (11:30)
[2025-08-08 11:39] LABS: Hematocrit 45.3 % (41.0-53.0); Hemoglobin 14.6 g/dL (13.5-17.5); Mean Corpuscular Hemoglobin 29.7 pg (28.0-32.0); Mean Corpuscular Volume 91.9 fL (80.0-100.0); Nucleated Red Blood Cells % 0.1 %
--- NOTE | 2025-08-08 12:03 | DVH ---
INDICATION: elevated LFTs TECHNIQUE: Multiple real-time sonographic images were obtained of the right upper quadrant. COMPARISON: None FINDINGS: The liver demonstrates coarsened echotexture without focal mass lesions. The liver measures 17 cm. There is no intrahepatic or extrahepatic ductal dilatation. The common duct measures 4 mm. The gallbladder is without evidence of stone or sludge. The gallbladder wall measures 6 mm and is t hickened which is nonspecific The right kidney measures 10 cm. The right kidney is normal in contour, size, and shape. The echogen icity is normal. There is no hydronephrosis. The pancreas is not well visualized due to overlying bowel gas. Small volume ascites. IMPRESSION: Nonspecific gallbladder wall thickening measuring 0.6 cm. Findings can be seen in setting of chronic liver disease. No shadowing gallstones. Findings suggestive of hepatic cirrhosis. Small volume ascites.
[2025-08-08] MEDS: InsuLIN REG 1unit/0.01ml Soln (100units/ml) SC SCH (13:34)
[2025-08-08] MEDS: BUMETANIDE 1mg/4ml VIAL (0.25mg/ml) IV ONE (15:09)
[2025-08-08 16:35] LABS: Urine Protein, UAD 1+ (Negative)
[2025-08-08 16:47] LABS: Protein, Urine 75.3 mg/dL (1-14)
--- NOTE | 2025-08-08 17:13 | DVHPN2 ---
Progress Note Date Seen: Aug 08, 2025 Medical Necessity Reason Pt with a Central, PICC or Fol: No Subjective Patient reports: No new complaints, Feels better Review of Systems: HEENT:Normal, CVS:Normal, RESPIRATORY:Normal, GI:Normal, :Normal, MSK:Normal, NEURO:Normal Objective vital signs Vital Sign Date Time Temp Pulse Resp B/P (MAP) Pulse Ox O2 Delivery O2 Flow Rate FiO2 08/08/25 17:00 59 18 102/66 (78) 95 08/08/25 16:00 Nasal Cannula* 2 28 08/08/25 12:00 98.3 98.3 Total Intake and Output 08/07/25 08/07/25 08/08/25 15:00 23:00 07:00 Intake Total 202.09 ml 707.24 ml Output Total 480 ml Balance 202.09 ml 227.24 ml medications Current Medications Medications Dose Ordered Sig/Freddy Route Start Time Stop Time Status Last Admin Dose Admin Furosemide 40 mg BID IV 08/07/25 22:00 08/08/25 09:32 40 MG Sodium Chloride 10 ml Q8HR IV 08/07/25 22:00 08/08/25 15:04 10 ML Docusate Sodium 100 mg BIDPRN PRN PO 08/07/25 15:00 Acetaminophen 650 mg Q6HP PRN PO 08/07/25 15:00 Acetaminophen/ Hydrocodone Bitart 1 tab Q4HP PRN PO 08/07/25 15:00 Ondansetron HCl 4 mg Q4HP PRN IV 08/07/25 15:00 08/07/25 17:04 4 MG Aspirin 81 mg DAILY PO 08/08/25 10:00 08/08/25 13:46 81 MG Empaglifozin 25 mg DAILY PO 08/08/25 10:00 08/08/25 09:33 25 MG Pantoprazole Sodium 40 mg DAILY@0600 PO 08/09/25 06:00 Levalbuterol HCl 0.625 mg Q6HWA NEB 08/08/25 12:00 08/08/25 11:12 0.625 MG Diagnostic Test (Pha) 1 strip ACHS 08/08/25 11:30 08/08/25 11:30 1 STRIP Insulin Human Regular ACHS SC 08/08/25 11:30 08/08/25 13:34 2 UNITS Dextrose 50 ml UD PRN IV 08/08/25 10:15 Examination: GENERAL:Abnormal, LUNGS:Abnormal laboratory and microbiology Laboratory Tests 08/08/25 11:30 08/08/25 05:00 Test 08/08/25 05:00 Range/Units Serum Glucose 186 H 74-106 mg/dL Microbiology Date/Time Source Procedure Growth Status 08/07/25 17:44 Nose MRSA Screen - Final Complete Problem List/Assessment/Plan Problem List/Assessment/Plan Acute kidney injury superimposed Chronic Kidney Disease secondary to hemodynamic mediated cardiorenal syndrome Congestive heart failure exacerbation Hypotension Hyperglycemia Hyperkalemia recs bumex 1mg iv bid stable renal function Plan discussed with: Patient My Orders My Orders Orders - CLEMENTINE BLACKMON MD Procedure Category Date Status Time Bumetanide Injection PHA 08/08/25 Logged (Bumex Injection) 18:00 CLEMENTINE BLACKMON MD Aug 08, 2025 17:13
[2025-08-08] MEDS: BUMETANIDE 1mg/4ml VIAL (0.25mg/ml) IV SCH (18:22)
--- NOTE | 2025-08-08 22:58 | DVHPN2 ---
Consult Progress Note Subjective Other Systems: Patient was seen and evaluated in follow up in the ICU. Patient in paced rhythm on environmental monitoring specialist. Patient reports his breathing has improved. WBC 13.7, K 5.2, BUN 54, EXTERNAL AUDITOR 3.40, AST 4105, ALT 2596. Liver US shows nonspecific gallbladder wall thickening measuring 0.6 cm. Findings can be seen in setting of chronic liver disease. No shadowing gallstones. Findings suggestive of hepatic cirrhosis. Small volume ascites Objective vital signs Vital Sign Date Time Temp Pulse Resp B/P (MAP) Pulse Ox O2 Delivery O2 Flow Rate FiO2 08/08/25 17:00 59 18 102/66 (78) 95 08/08/25 16:00 Nasal Cannula* 2 28 08/08/25 12:00 98.3 98.3 Total Intake and Output 08/07/25 08/07/25 08/08/25 14:59 22:59 06:59 Intake Total 173.47 ml 735.86 ml Output Total 480 ml Balance 173.47 ml 255.86 ml medications Current Medications Medications Dose Ordered Sig/Freddy Route Start Time Stop Time Status Last Admin Dose Admin Sodium Chloride 10 ml Q8HR IV 08/07/25 22:00 08/08/25 15:04 10 ML Docusate Sodium 100 mg BIDPRN PRN PO 08/07/25 15:00 Acetaminophen 650 mg Q6HP PRN PO 08/07/25 15:00 Acetaminophen/ Hydrocodone Bitart 1 tab Q4HP PRN PO 08/07/25 15:00 Ondansetron HCl 4 mg Q4HP PRN IV 08/07/25 15:00 08/07/25 17:04 4 MG Aspirin 81 mg DAILY PO 08/08/25 10:00 08/08/25 13:46 81 MG Empaglifozin 25 mg DAILY PO 08/08/25 10:00 08/08/25 09:33 25 MG Pantoprazole Sodium 40 mg DAILY@0600 PO 08/09/25 06:00 Levalbuterol HCl 0.625 mg Q6HWA NEB 08/08/25 12:00 08/08/25 11:12 0.625 MG Diagnostic Test (Pha) 1 strip ACHS 08/08/25 11:30 08/08/25 11:30 1 STRIP Insulin Human Regular ACHS SC 08/08/25 11:30 08/08/25 13:34 2 UNITS Dextrose 50 ml UD PRN IV 08/08/25 10:15 Bumetanide 1 mg BIDD IV 08/08/25 18:00 UNV Examination: GENERAL:Abnormal (Generalized weakness), HEENT:Normal, NECK:Normal, LUNGS:Normal, CVS:Normal, ABDOMEN:Normal, MSK:Normal, NEURO:Normal laboratory and microbiology Laboratory Tests 08/08/25 11:30 08/08/25 05:00 Test 08/08/25 05:00 Range/Units Serum Glucose 186 H 74-106 mg/dL Problem List/Assessment/Plan Problem List/Assessment/Plan Problem List Acute on chronic decompensated HFrEF, NYHA class IV. Severe coronary artery disease status post triple-vessel CABG. Dilated/ischemic cardiomyopathy. Presence of AICD ([employer]tr[employer]). Hypertension. Dyslipidemia. Hyperkalemia. Type 2 diabetes mellitus. Chronic kidney disease. BPH. Thyroid disease, ?new onset. History of tobacco use. Dietary noncompliance. Plan/Recommendations Continued all current supportive medical care. Patient has been seen by Sigrid Chaves NP on my behalf, her and I discussed the plan with the patient. Transthoracic echocardiogram reveals EF of 20%. Avoid Midodrine as this is contraindicated in HFrEF patients. Dobutamine discontinued. Unable to initiate full guideline directed medical therapy at this time given suboptimal blood pressures and poor renal function. Add low-dose Beta keyla with stable BP. Aggressive diuresis as tolerated. Strict intake and output, daily weights, maintain fluid restriction. AICD device interrogation----still pending. Close Cardiac surveillance. Nephrology consult and recommendations. Additional plan as per the hospital course. Plan discussed with: Patient Date of Service: Aug 08, 2025 Billing Provider: STEF VELASQUEZ MD Cardiology Common Codes: [id number] CARE 30-74 MIN STEF VELASQUEZ MD Aug 08, 2025 17:17
[2025-08-09] VITALS (27 sets, daily range): BP systolic 82–116; BP diastolic 29–71; PULSE 59–65; RESP 13–30; TEMP 97.8–98.4; O2SAT 84–100
[2025-08-09 05:53] LABS: Hemoglobin 16.4 g/dL (13.5-17.5); Mean Corpuscular Hemoglobin 30.7 pg (28.0-32.0); Mean Corpuscular Volume 92.7 fL (80.0-100.0)
[2025-08-09 05:56] LABS: Hematocrit 49.6 % (41.0-53.0); Nucleated Red Blood Cells % 0.7 %
[2025-08-09] MEDS: PANTOPRAZOLE 40 MG TAB PO SCH (05:59)
[2025-08-09 06:21] LABS: Anion Gap 23 (5-15); BUN/Creatinine Ratio 14.7 (10.0-20.0); Chloride 99 mmol/L (98-107); Potassium 4.9 mmol/L (3.5-5.1); Total Protein 6.3 g/dL (5.7-8.2)
[2025-08-09 06:22] LABS: Albumin 3.7 g/dL (3.2-4.8)
[2025-08-09 06:42] LABS: Alanine Aminotransferase 1957 U/L (7-40); Alkaline Phosphatase 118 U/L (46-116); Bilirubin, Total 3.4 mg/dL (0.2-1.0); Blood Urea Nitrogen 48 mg/dL (9-23); Calcium 8.3 mg/dL (8.7-10.4); Carbon Dioxide 12 mmol/L (20-31); Glucose 119 mg/dL (74-106); Magnesium 2.7 mg/dL (1.6-2.6); Sodium 134 mmol/L (136-145)
--- NOTE | 2025-08-09 10:10 | DVHDS2 ---
Discharge Summary Date of Admission Aug 07, 2025 at 14:56 Date of Discharge: Aug 09, 2025 Admitting Diagnosis CHF exacerbation Labs/Diagnostic Data: Laboratory Results Test 08/09/25 06:01 08/09/25 04:50 08/08/25 16:00 08/08/25 05:00 POC Glucose 142 mg/dl (70-106) White Blood Count 16.2 10^3/uL (4.4-10.8) Red Blood Count 5.35 10^6/uL (4.5-5.90) Hemoglobin 16.4 g/dL (13.5-17.5) Hematocrit 49.6 % (41.0-53.0) Mean Corpuscular Volume 92.7 fL (80.0-100.0) Mean Corpuscular Hemoglobin 30.7 pg (28.0-32.0) Mean Corpuscular Hemoglobin Concent 33.1 g/dL (32.0-36.0) Red Cell Distribution Width 16.1 % (11.8-14.3) Platelet Count 51 10^3/uL (140-450) Mean Platelet Volume 10.8 fL (6.9-10.8) Neutrophils (%) (Auto) 84.9 % (37.0-80.0) Lymphocytes (%) (Auto) 4.7 % (10.0-50.0) Monocytes (%) (Auto) 10.0 % (0.0-12.0) Eosinophils (%) (Auto) 0.1 % (0.0-7.0) Basophils (%) (Auto) 0.3 % (0.0-2.0) Neutrophils # (Auto) 13.8 10 ^3/uL (1.6-8.6) Lymphocytes # (Auto) 0.8 10 ^3/uL (0.4-5.4) Monocytes # (Auto) 1.6 10 ^3/uL (0-1.3) Eosinophils # (Auto) 0 10 ^3/uL (0-0.8) Basophils # (Auto) 0.1 10 ^3/uL (0-0.2) Nucleated Red Blood Cells 0.7 % Sodium Level 134 mmol/L (136-145) Potassium Level 4.9 mmol/L (3.5-5.1) Chloride Level 99 mmol/L (98-107) Carbon Dioxide Level 12 mmol/L (20-31) Anion Gap 23 (5-15) Blood Urea Nitrogen 48 mg/dL (9-23) Creatinine 3.27 mg/dL (0.700-1.30) Glomerular Filtration Rate Calc 18 mL/min (>90) BUN/Creatinine Ratio 14.7 (10.0-20.0) Serum Glucose 119 mg/dL (74-106) Calcium Level 8.3 mg/dL (8.7-10.4) Magnesium Level 2.7 mg/dL (1.6-2.6) Total Bilirubin 3.4 mg/dL (0.2-1.0) Aspartate Amino Transferase (AST) 1218 U/L (13-40) Alanine Aminotransferase (ALT) 1957 U/L (7-40) Alkaline Phosphatase 118 U/L (46-116) Total Protein 6.3 g/dL (5.7-8.2) Albumin 3.7 g/dL (3.2-4.8) Urine Color Yellow (Yellow) Urine Clarity Clear (Clear) Urine pH 5.0 (5.0-9.0) Urine Specific [place] 1.014 (1.001-1.035) Urine Protein 1+ (Negative) Urine Ketones Negative (Negative) Urine Blood Trace /uL (Negative) Urine Nitrite Negative (Negative) Urine Bilirubin Negative (Negative) Urine Urobilinogen Normal mg/dL (Negative) Urine Leukocyte Esterase Negative /uL (Negative) Urine RBC 1 /hpf (0 - 3) Urine Microscopic WBC 1 /HPF (0-3) Urine Squamous Epithelial Cells Few /hpf (<5) Urine Bacteria Few /hpf (None Seen) Urine Hyaline Casts Mod /lpf (0 - 2) Urine Creatinine 109.42 mg/dL (30.0-125.0) Urine Protein/Creatinine Ratio 0.69 Urine Sodium 10 mmol/L (40-220) Urine Glucose 4+ mg/dL (Normal) Urine Total Protein 75.3 mg/dL (1-14) Free Thyroxine (T4) Calculated 1.54 ng/dL (0.89-1.76) Free Triiodothyronine (T3) pg/mL 1.83 pg/mL (2.3-4.2) Test 08/07/25 18:26 08/07/25 12:12 08/07/25 02:26 08/07/25 01:35 D-Dimer, Quantitative 7.49 mg/L FEU (0.0-0.49) Influenza Type A Antigen Negative (Negative) Influenza Type B Antigen Negative (Negative) SARS-CoV-2 Antigen (Rapid) Negative (NEGATIVE) Troponin I High Sensitivity 10 ng/L (</=54) Triglycerides Level 68 mg/dL (< 150) Cholesterol Level 78 mg/dL (< 200) LDL Cholesterol 35 mg/dL (< 100) HDL Cholesterol 34 mg/dL (40-59) Thyroid Stimulating Hormone (TSH) 17.36 uIU/mL (0.55-4.78) Hemoglobin A1c 7.3 % A1C (<5.7) Test 08/07/25 01:34 B-Type Natriuretic Peptide 4471.28 pg/mL (0-100) Other Laboratory Tests 08/09/25 04:50 Brief Hx & Hospital Course: History of Present Illness This is a 79-year-old male, with a Hx of COPD, CHF, Asthma, and Pacemaker, who presents to the ED with a chief complaint of SOB with associated cough and swelling of the bilateral lower extremities for X1 week. Patient reports taking an at home COVID test today with negative results. Patient has no further complaints at this time and otherwise denies chest pain, hemoptysis, fever, chills, or N/V/D. Course of hospitalization: Patient was given aggressive IV diuresis. Given patient's renal function, as well as hypotension, guideline directed medical therapy was held at this time. Patient was initially treated with Dobutrex drip. Patient's respiratory status as well as hypotension improved. Nephrology consultation was obtained. Patient was noted to have elevated liver function tests, for which liver ultrasound was performed, revealing cirrhosis changes. Patient denies having history of ETOH intake or any other previous liver disease. Hepatitis panel is currently pending. Echocardiogram reveals four-chamber enlargement as well as ejection fraction of 20%. Cardiology recommendations were implemented, with Jardiance being restarted. GI consultation has been placed, currently pending. Patient possibly has cardiac hepatitis secondary to decompensated heart failure at this time. Patient was also noted to have elevated white blood cell count, with blood cultures currently pending, urine culture currently pending, but noted few bacteria on urinalysis, for which patient was placed on Levaquin. Patient noted to have amoxicillin and erythromycin allergy, so mono treatment we will be utilized at this time. Patient is agreeable to be transferred to the [facility]. Given patient's improvement with respiratory status, patient is stable to transfer to their facility. Currently patient has transfer orders to the step-down ICU in this facility. If deemed appropriate by [facility] provider, patient can be transferred to their telemetry floor. Physical examination General: Alert and Oriented x3. No acute distress. Well-nourished. Obese Eyes: EOMI. Anicteric. HENT: Moist mucous membranes. Lungs: Clear to auscultation bilaterally. No accessory muscle use. Cardiovascular: AV paced. Regular rate and rhythm. No murmur. No JVD. Abdomen: Soft, non-tender and non-distended. No palpable masses. Extremities: No edema. Non-tender. Skin: No rashes or lesions. Warm. Neurologic: No focal neurological deficits. CN II-XII grossly intact, but not individually tested. Psychiatric: Cooperative. Appropriate mood and affect. Total time spent with patient discussing and formulating plan of care: 35 minutes. This medical document was created using an electronic medical record system with eTapest[employer] dictation system. Although this document has been carefully reviewed, there may still be some phonetic and typographical errors. These areas are purely typographical due to imperfections of the software programs, and do not reflect any compromise in the patient's medical care. Condition at Discharge: Guarded Final Diagnosis/Problems List Acute on chronic decompensated systolic heart failure -acute hypoxic respiratory failure -acute on chronic systolic heart failure -coronary artery disease with previous CABG -status post ICD placement -obesity -diabetes mellitus -asthma -CKD stage 4 -transaminitis Discharge Disposition: Acute Care Facility Discharge Instruct/Medications Diet: Consistent carbohydrate, Cardiac 2g Na,low cholest, Renal Activity: No Restrictions, As Tolerated Follow Up/Referral: Per accepting provider Medications: Refer to medication reconciliation form Scheduled Amiodarone Hcl (Amiodarone Hcl), 200 MG PO DAILY, (Reported) Aspirin (Asa), 81 MG PO DAILY Bisoprolol Fumarate (Bisoprolol Fumarate), 10 MG PO BID, (Reported) Empagliflozin (Jardiance), 25 MG PO DAILY, (Reported) Furosemide (Lasix), 20 MG PO DAILY Furosemide (Lasix), 40 MG PO BID, (Reported) Metoprolol Tartrate (Lopressor Tablet), 25 MG PO BID Omeprazole Magnesium (Omeprazole), 40 MG PO DAILY, (Reported) Potassium Chloride (Klor-Con Tablet), 8 MEQ PO DAILY Potassium Chloride (Potassium Chloride Cr), 10 MEQ PO BID, (Reported) Sacubitril-Valsartan (Entresto 24-26 mg), 1 TAB PO DAILY, (Reported) Spironolactone (Spironolactone), 25 MG PO DAILY, (Reported) Tamsulosin HCl (Tamsulosin Hydrochloride), 0.8 MG PO DAILY, (Reported) [Losartan Potassium], 25 MG PO DAILY Miscellaneous Medications Hydrocodone-Acetaminophen (Hydrocodone Bitartrate/AC 5-325 mg), 1 TAB PO, (Reported) 36 Discharge Statement: "Patient was advised to return to the ER or call 911 if any headaches, dizziness, shortness of breath, chest pain, abdominal pain, bleeding, fevers, or worsening of medical condition. Patient was counseled about treatment plan, medications, possible side effects, patientverbalized understanding. All questions were answered to the best of my ability. This discharge took greater then 30 minutes in planning, reviewing documentation, counseling the patient, and discussing with other team members." ASSESSMENT ASSESSMENT Assessment Acute on chronic decompensated systolic heart failure Date of Service: Aug 09, 2025 Billing Provider: ERNESTO LIND NP Common Visit Codes: 25036-RIB/OBS DISCH DAY >30min ERNESTO LIND NP Aug 09, 2025 10:10
[2025-08-09 11:09] LABS: Uric Acid 15.6 mg/dL (3.7-9.2)
[2025-08-09] MEDS: PRAMIPEXOLE DIHYDROCHLORIDE MO 0.25 MG TAB PO ONE (15:54)
--- NOTE | 2025-08-09 15:54 | DVHPN2 ---
Subjective DOS: 08/09/2025 HPI: This is a 79-year-old man with past medical history of COPD, asthma, CHF, and pacemaker, who presented to the ED on 08/07/25 with a chief complaint of shortness of breath with associated cough and swelling of the bilateral lower extremities for x1 week. Patient reported taking an at-home COVID test with negative results. Patient denied other complaints at this time and denied chest pain, hemoptysis, fever, chills, or N/V/D. Patient was admitted for further care. Pulmonary consultation is requested for evaluation and management of acute hypoxic respiratory failure. Past Medical History:: Asthma, Cancer, CHF, CKF, COPD, High Lipids Past Surgical History: Appendectomy, CABG, Pacemaker Family History: No family history of premature CAD. No family history of lung disorders. Social History Former smoker, Quit Greater Than 1 Year, Cigarettes Alcohol: Occasional No illicit drug use. Reviewed: Care Plan, H&P, Labs, Medications, Previous Orders Changes from previous H/P or p: No Changes General: Per HPI Objective Vitals Vital Signs Date Time Temp Pulse Resp B/P (MAP) Pulse Ox O2 Delivery O2 Flow Rate FiO2 08/09/25 12:00 97.8 60 23 116/66 (83) 93 97.8 08/09/25 06:41 Nasal Cannula 4.0 08/09/25 06:40 36 Intake/Output Intake and Output 08/09/25 07:00 Intake Total 1440 ml Output Total 990 ml Balance 450 ml Intake Oral 1440 ml Output Urine Total 990 ml General Appearance: Alert, Oriented X3, Cooperative, mild distress, Other (Obese) HEENT: Atraumatic, PERRLA Lungs: Clear to auscultation, Other (Decreased air entry bilaterally. No wheezing or rhonchi.) Cardiovascular: Normal S1, Normal S2 Abdomen: Normal bowel sounds, Soft, No tenderness Genitourinary: No Apparent Abnormalities Musculoskeletal: Normal sensory function, Normal motor function Neuro: Normal gait, Normal speech Skin: Dry, Intact Psych/Mental Status: Mental status NL, Mood NL Medications Current Medications Medications Dose Ordered Sig/Ferddy Route Start Time Stop Time Status Last Admin Dose Admin Sodium Chloride 10 ml Q8HR IV 08/07/25 22:00 08/09/25 12:53 10 ML Docusate Sodium 100 mg BIDPRN PRN PO 08/07/25 15:00 Acetaminophen 650 mg Q6HP PRN PO 08/07/25 15:00 Acetaminophen/ Hydrocodone Bitart 1 tab Q4HP PRN PO 08/07/25 15:00 Ondansetron HCl 4 mg Q4HP PRN IV 08/07/25 15:00 08/07/25 17:04 4 MG Aspirin 81 mg DAILY PO 08/08/25 10:00 08/09/25 10:09 81 MG Empaglifozin 25 mg DAILY PO 08/08/25 10:00 08/09/25 10:10 25 MG Pantoprazole Sodium 40 mg DAILY@0600 PO 08/09/25 06:00 08/09/25 05:59 40 MG Levalbuterol HCl 0.625 mg Q6HWA NEB 08/08/25 12:00 08/09/25 11:26 0.625 MG Diagnostic Test (Pha) 1 strip ACHS 08/08/25 11:30 08/09/25 12:34 1 STRIP Insulin Human Regular ACHS SC 08/08/25 11:30 08/09/25 12:53 3 UNITS Dextrose 50 ml UD PRN IV 08/08/25 10:15 Bumetanide 1 mg BIDD IV 08/08/25 18:00 08/09/25 05:59 1 MG Levofloxacin/ Dextrose 100 ml @ 100 mls/hr Q48H IV 08/09/25 09:30 Levothyroxine Sodium 75 mcg QAM@0600 PO 08/10/25 06:00 Sodium Bicarbonate 650 mg TID PO 08/09/25 14:00 Laboratory Results Laboratory Tests 08/09/25 04:50 Chemistry Test 08/09/25 04:50 08/09/25 10:26 Albumin 3.7 g/dL (3.2-4.8) Calcium Level 8.3 mg/dL (8.7-10.4) L Magnesium Level 2.7 mg/dL (1.6-2.6) H Total Protein 6.3 g/dL (5.7-8.2) Phosphorus Level 5.7 mg/dL (2.4-5.1) H LFT Test 08/09/25 04:50 Alanine Aminotransferase (ALT) 1957 U/L (7-40) H Alkaline Phosphatase 118 U/L (46-116) H Aspartate Amino Transferase (AST) 1218 U/L (13-40) H Total Bilirubin 3.4 mg/dL (0.2-1.0) H Urinalysis Test 08/08/25 16:00 Urine Color Yellow (Yellow) Urine Clarity Clear (Clear) Urine pH 5.0 (5.0-9.0) Urine Specific [place] 1.014 (1.001-1.035) Urine Protein 1+ (Negative) H Urine Ketones Negative (Negative) Urine Blood Trace /uL (Negative) H Urine Nitrite Negative (Negative) Urine Bilirubin Negative (Negative) Urine Urobilinogen Normal mg/dL (Negative) Urine Leukocyte Esterase Negative /uL (Negative) Urine RBC 1 /hpf (0 - 3) Urine Microscopic WBC 1 /HPF (0-3) Urine Squamous Epithelial Cells Few /hpf (<5) Urine Bacteria Few /hpf (None Seen) H Urine Hyaline Casts Mod /lpf (0 - 2) Urine Creatinine 109.42 mg/dL (30.0-125.0) Urine Protein/Creatinine Ratio 0.69 Urine Sodium 10 mmol/L (40-220) L Urine Glucose 4+ mg/dL (Normal) H Urine Total Protein 75.3 mg/dL (1-14) H Blood Gas Results Test 08/09/25 10:05 FiO2 % 36.0 Microbiology Microbiology Date/Time Source Procedure Growth Status 08/08/25 16:00 Voided Urine Urine Culture - Preliminary Resulted 08/07/25 17:44 Nose MRSA Screen - Final Complete Assessment/Plan Assessment/Plan Impression: Acute hypoxic respiratory failure Dependence on supplemental oxygen Acute on chronic systolic heart failure Coronary artery disease, s/p CABG S/p ICD placement Asthma Hx of nicotine dependence Obesity, BMI 33.0 Plan: Supplemental oxygen, on 4 LPM NC Titrate to keep O2 sats above 92%. Taper O2 as tolerated. ABG reviewed, compensated. Follow up results of viral panel. Continue bronchodilators. Continue antibiotics Incentive spirometry Accu-Cheks, ISS. Protonix for GI ppx Follow up Cardiology recommendations Diurese to euvolemia w/ Bumex and Lasix BID. Monitor renal function. Monitor electrolytes. Supplement as necessary. Monitor ins and outs. Diet and lifestyle modifications for weight reduction Obesity complicates all care Patient awaiting transfer to [place]. GI/DVT prophylaxis. Prognosis: Poor given patient's multiple co-morbidities. Rest of plan per hospitalist and other consultants. Thank you, REMA Mathur, for allowing me to participate in this patient's care. Further recommendations will depend on the patient's clinical course. Please do not hesitate to contact me if you have any questions or concerns. This medical document was created using an electronic medical record system with GoNogging dictation system. Although these documentations are being carefully reviewed, there may still be some phonetic and typographical changes. The errors are purely typographical, due to imperfection on the software program, and do not reflect any compromise in the patient's medical care. Plan discussed with: Patient, Other (RN Tyesha) Date of Service: Aug 09, 2025 Billing Provider: DELMI AC MD Common Visit Codes: [id number] INP/OBS CARE(HIGH), [id number] CARE 30-74 MIN DELMI AC MD Aug 09, 2025 15:54
[2025-08-09] MEDS: SODIUM BICARBONATE 650 MG TAB PO SCH (15:55)
--- NOTE | 2025-08-09 16:10 | DVHPN2 ---
Progress Note Date Seen: Aug 09, 2025 Medical Necessity Reason Pt with a Central, PICC or Fol: No Subjective Patient reports: No new complaints, Feels better Review of Systems: Deferred Objective vital signs Vital Sign Date Time Temp Pulse Resp B/P (MAP) Pulse Ox O2 Delivery O2 Flow Rate FiO2 08/09/25 12:00 97.8 60 23 116/66 (83) 93 97.8 08/09/25 06:41 Nasal Cannula 4.0 08/09/25 06:40 36 Total Intake and Output 08/08/25 08/08/25 08/09/25 15:00 23:00 07:00 Intake Total 960 ml 480 ml Output Total 300 ml 690 ml Balance 660 ml -210 ml medications Current Medications Medications Dose Ordered Sig/Freddy Route Start Time Stop Time Status Last Admin Dose Admin Sodium Chloride 10 ml Q8HR IV 08/07/25 22:00 08/09/25 12:53 10 ML Docusate Sodium 100 mg BIDPRN PRN PO 08/07/25 15:00 Acetaminophen 650 mg Q6HP PRN PO 08/07/25 15:00 Acetaminophen/ Hydrocodone Bitart 1 tab Q4HP PRN PO 08/07/25 15:00 Ondansetron HCl 4 mg Q4HP PRN IV 08/07/25 15:00 08/07/25 17:04 4 MG Aspirin 81 mg DAILY PO 08/08/25 10:00 08/09/25 10:09 81 MG Empaglifozin 25 mg DAILY PO 08/08/25 10:00 08/09/25 10:10 25 MG Pantoprazole Sodium 40 mg DAILY@0600 PO 08/09/25 06:00 08/09/25 05:59 40 MG Levalbuterol HCl 0.625 mg Q6HWA NEB 08/08/25 12:00 08/09/25 11:26 0.625 MG Diagnostic Test (Pha) 1 strip ACHS 08/08/25 11:30 08/09/25 12:34 1 STRIP Insulin Human Regular ACHS SC 08/08/25 11:30 08/09/25 12:53 3 UNITS Dextrose 50 ml UD PRN IV 08/08/25 10:15 Bumetanide 1 mg BIDD IV 08/08/25 18:00 08/09/25 05:59 1 MG Levofloxacin/ Dextrose 100 ml @ 100 mls/hr Q48H IV 08/09/25 09:30 Levothyroxine Sodium 75 mcg QAM@0600 PO 08/10/25 06:00 Sodium Bicarbonate 650 mg TID PO 08/09/25 14:00 08/09/25 15:55 650 MG Examination: GENERAL:Normal, HEENT:Normal, LUNGS:Abnormal, CVS:Abnormal, MSK:Abnormal, SKIN:Abnormal, NEURO:Normal, :Normal laboratory and microbiology Laboratory Tests 08/09/25 04:50 Test 08/09/25 04:50 Range/Units Serum Glucose 119 H 74-106 mg/dL Microbiology Date/Time Source Procedure Growth Status 08/08/25 16:00 Voided Urine Urine Culture - Preliminary Resulted 08/07/25 17:44 Nose MRSA Screen - Final Complete Problem List/Assessment/Plan Problem List/Assessment/Plan Acute kidney injury superimposed Chronic Kidney Disease secondary to hemodynamic mediated cardiorenal syndrome Congestive heart failure exacerbation Hypotension Hyperglycemia Hyperkalemia recs bumex 1mg iv bid stable renal function bell transfer pending po bicarb,phoslo Plan discussed with: Patient My Orders My Orders Orders - CLEMENTINE BLACKMON MD Procedure Category Date Status Time Bumetanide Injection PHA 08/08/25 In Process (Bumex Injection) 18:00 Sodium Bicarb Tab PHA 08/09/25 In Process 14:00 Dietary Evaluation Review Recommendations by RD: Dietary education by RD, Protein Supplementation Comments: 1) Initiate Nephro-Sera @ 1 tb qd 2) Initiate Nepro bid. Encourage optimal PO intake 3) Add renal restriction to 60g CCHO cardiac diet 4) Refer to outpatient RD/CDCES for diabetes education 5) Follow-up with cardiology, pulmonology, nephrology, and oncology 6) Continue to monitor I&O, labs, and skin integrity Expected Outcomes/Goals: 1) appetite and labs to improve 2) wounds to improve 3) gradual wt loss 4) f/u in 3-5 days CLEMENTINE BLACKMON MD Aug 09, 2025 16:10
[2025-08-09] MEDS: CALCIUM ACETATE 667 MG CAP PO SCH (17:26)
--- NOTE | 2025-08-09 19:51 | DVHPN2 ---
Progress Note - Dictate Date Seen: Aug 09, 2025 Medical Necessity Reason Pt with a Central, PICC or Fol: No Subjective Patient was seen and evaluated in follow up in the ICU. Patient is resting in bed. Patient was accepted to [facility] and is being arranged for transfer to [place]. vital signs Vital Sign Date Time Temp Pulse Resp B/P (MAP) Pulse Ox O2 Delivery O2 Flow Rate FiO2 08/09/25 18:00 16 97 Nasal Cannula* 4 36 08/09/25 18:00 60 08/09/25 18:00 111/69 (83) 08/09/25 12:00 97.8 97.8 Total Intake and Output 08/08/25 08/08/25 08/09/25 15:00 23:00 07:00 Intake Total 960 ml 480 ml Output Total 300 ml 690 ml Balance 660 ml -210 ml objective GENERAL: Alert and oriented x 3. No acute distress. EYES: PERRL, EOMI. Anicteric. HENT: Moist mucous membranes. LUNGS: Clear to auscultation bilaterally. CARDIOVASCULAR: Regular rate and rhythm. ABDOMEN: Soft, nontender and nondistended. EXTREMITIES: No edema. NEUROLOGIC: No focal neurological deficits. SKIN: Warm, dry. laboratory and microbiology Laboratory Tests 08/09/25 04:50 Test 08/09/25 04:50 Range/Units Serum Glucose 119 H 74-106 mg/dL Problem List Acute on chronic decompensated HFrEF, NYHA class IV. Severe coronary artery disease status post triple-vessel CABG. Dilated/ischemic cardiomyopathy. Presence of AICD ([employer]). Hypertension. Dyslipidemia. Hyperkalemia. Type 2 diabetes mellitus. Chronic kidney disease. BPH. Thyroid disease, ?new onset. History of tobacco use. Dietary noncompliance. Assessment/Plan Continued all current supportive medical care. Diuretics with Bumex. GI prophylactics. Aspirin. [place] for pain management. Additional plan as per the hospital course. Critical care time of 45 minutes provided to include time spent evaluation of patient at bedside, when appropriate patient/family education for diagnosis, treatment plan, review of pertinent medical information and discussion of care with specialty providers and PCP. Dietary Evaluation Review Recommendations by RD: Dietary education by RD, Protein Supplementation Comments: 1) Initiate Nephro-Sera @ 1 tb qd 2) Initiate Nepro bid. Encourage optimal PO intake 3) Add renal restriction to 60g CCHO cardiac diet 4) Refer to outpatient RD/CDCES for diabetes education 5) Follow-up with cardiology, pulmonology, nephrology, and oncology 6) Continue to monitor I&O, labs, and skin integrity Expected Outcomes/Goals: 1) appetite and labs to improve 2) wounds to improve 3) gradual wt loss 4) f/u in 3-5 days Plan discussed with: Patient STEF VELASQUEZ MD Aug 09, 2025 19:21
[2025-08-10] MEDS ORDERED: LEVOTHYROXINE SODIUM 25 MCG TAB PO SCH (06:00)
--- NOTE | 2025-08-10 09:47 | ECG ---
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
--- NOTE | 2025-08-11 08:25 | DVHPN2 ---
Subjective DOS: 08/10/2025 HPI: This is a 79-year-old man with past medical history of COPD, asthma, CHF, and pacemaker, who presented to the ED on 08/07/25 with a chief complaint of shortness of breath with associated cough and swelling of the bilateral lower extremities for x1 week. Patient reported taking an at-home COVID test with negative results. Patient denied other complaints at this time and denied chest pain, hemoptysis, fever, chills, or N/V/D. Patient was admitted for further care. Pulmonary consultation is requested for evaluation and management of acute hypoxic respiratory failure. Past Medical History:: Asthma, Cancer, CHF, CKF, COPD, High Lipids Past Surgical History: Appendectomy, CABG, Pacemaker Family History: No family history of premature CAD. No family history of lung disorders. Social History Former smoker, Quit Greater Than 1 Year, Cigarettes Alcohol: Occasional No illicit drug use. Reviewed: Care Plan, H&P, Labs, Medications, Previous Orders General: Per HPI Objective Vitals Vital Signs Date Time Temp Pulse Resp B/P (MAP) Pulse Ox O2 Delivery O2 Flow Rate FiO2 08/09/25 18:00 16 97 Nasal Cannula* 4 36 08/09/25 18:00 60 08/09/25 18:00 111/69 (83) 08/09/25 12:00 97.8 97.8 General Appearance: Alert, Oriented X3, Cooperative, mild distress, Other (Obese) HEENT: Atraumatic, PERRLA Lungs: Clear to auscultation, Other (Decreased air entry bilaterally. No wheezing or rhonchi.) Cardiovascular: Normal S1, Normal S2 Abdomen: Normal bowel sounds, Soft, No tenderness Genitourinary: No Apparent Abnormalities Musculoskeletal: Normal sensory function, Normal motor function Neuro: Normal gait, Normal speech Skin: Dry, Intact Psych/Mental Status: Mental status NL, Mood NL Laboratory Results Laboratory Tests 08/09/25 04:50 Urinalysis Test 08/08/25 16:00 Urine Color Yellow (Yellow) Urine Clarity Clear (Clear) Urine pH 5.0 (5.0-9.0) Urine Specific [place] 1.014 (1.001-1.035) Urine Protein 1+ (Negative) H Urine Ketones Negative (Negative) Urine Blood Trace /uL (Negative) H Urine Nitrite Negative (Negative) Urine Bilirubin Negative (Negative) Urine Urobilinogen Normal mg/dL (Negative) Urine Leukocyte Esterase Negative /uL (Negative) Urine RBC 1 /hpf (0 - 3) Urine Microscopic WBC 1 /HPF (0-3) Urine Squamous Epithelial Cells Few /hpf (<5) Urine Bacteria Few /hpf (None Seen) H Urine Hyaline Casts Mod /lpf (0 - 2) Urine Creatinine 109.42 mg/dL (30.0-125.0) Urine Protein/Creatinine Ratio 0.69 Urine Sodium 10 mmol/L (40-220) L Urine Glucose 4+ mg/dL (Normal) H Urine Total Protein 75.3 mg/dL (1-14) H Microbiology Microbiology Date/Time Source Procedure Growth Status 08/09/25 10:26 Blood Blood Culture - Preliminary NO GROWTH AFTER 24 HOURS OF INCUBATION. Resulted 08/08/25 16:00 Voided Urine Urine Culture - Preliminary Resulted 08/07/25 17:44 Nose MRSA Screen - Final Complete Assessment/Plan Assessment/Plan Impression: Acute hypoxic respiratory failure Dependence on supplemental oxygen Acute on chronic systolic heart failure Coronary artery disease, s/p CABG S/p ICD placement Asthma Hx of nicotine dependence Obesity, BMI 33.0 Plan: Supplemental oxygen, on 4 LPM NC Titrate to keep O2 sats above 92%. Taper O2 as tolerated. ABG reviewed, compensated. Follow up results of viral panel. Continue bronchodilators. Continue antibiotics Incentive spirometry Accu-Cheks, ISS. Protonix for GI ppx Follow up Cardiology recommendations Diurese to euvolemia w/ Bumex and Lasix BID. Monitor renal function. Monitor electrolytes. Supplement as necessary. Monitor ins and outs. Diet and lifestyle modifications for weight reduction Obesity complicates all care Patient awaiting transfer to [place]. GI/DVT prophylaxis. Prognosis: Poor given patient's multiple co-morbidities. Rest of plan per hospitalist and other consultants. Thank you, REMA Mathur, for allowing me to participate in this patient's care. Further recommendations will depend on the patient's clinical course. Please do not hesitate to contact me if you have any questions or concerns. This medical document was created using an electronic medical record system with [employer] dictation system. Although these documentations are being carefully reviewed, there may still be some phonetic and typographical changes. The errors are purely typographical, due to imperfection on the software program, and do not reflect any compromise in the patient's medical care. Date of Service: Aug 10, 2025 Billing Provider: DELMI AC MD Common Visit Codes: [id number] INP/OBS CARE(HIGH) DELMI AC MD Aug 11, 2025 08:25
[2025-08-11 16:55] LABS: Hepatitis B Surface Antigen Negative (Negative)
[2025-08-11 17:16] LABS: Hepatitis C Antibody Negative (Negative)
== END 2025-08-09 18:41 | disposition short-term general hospital (02) | DRG 189 ==
LOC: ER 01:16 → OVERFLOW 14:56 → ICU CENTRL 17:30
PROVIDERS: ADMIT Nurse Practitioner Acute Care; ATTEND Nurse Practitioner Acute Care
DX: J96.01 Acute respiratory failure with hypoxia (principal); I50.23 Acute on chronic systolic (congestive) heart failure; I13.0 Hypertensive heart and chronic kidney disease with heart failure and stage 1 through stage 4 chronic kidney disease, or unspecified chronic kidney disease; N17.9 Acute kidney failure, unspecified; J45.901 Unspecified asthma with (acute) exacerbation; N18.4 Chronic kidney disease, stage 4 (severe); I42.0 Dilated cardiomyopathy; E87.5 Hyperkalemia; I25.10 Atherosclerotic heart disease of native coronary artery without angina pectoris; N40.0 Benign prostatic hyperplasia without lower urinary tract symptoms; I95.9 Hypotension, unspecified; E11.65 Type 2 diabetes mellitus with hyperglycemia; Z20.822 Contact with and (suspected) exposure to COVID-19; E11.22 Type 2 diabetes mellitus with diabetic chronic kidney disease; E78.5 Hyperlipidemia, unspecified; J44.89 Other specified chronic obstructive pulmonary disease; I25.5 Ischemic cardiomyopathy; E66.9 Obesity, unspecified; K74.60 Unspecified cirrhosis of liver; E07.9 Disorder of thyroid, unspecified; Z99.81 Dependence on supplemental oxygen; Z96.652 Presence of left artificial knee joint; Z95.1 Presence of aortocoronary bypass graft; Z91.119 Patient's noncompliance with dietary regimen due to unspecified reason; Z88.1 Allergy status to other antibiotic agents; Z95.810 Presence of automatic (implantable) cardiac defibrillator; Z87.891 Personal history of nicotine dependence; Z85.038 Personal history of other malignant neoplasm of large intestine; Z80.1 Family history of malignant neoplasm of trachea, bronchus and lung; Z79.4 Long term (current) use of insulin; Z68.33 Body mass index [BMI] 33.0-33.9, adult; Z83.3 Family history of diabetes mellitus; Z79.84 Long term (current) use of oral hypoglycemic drugs; Z88.0 Allergy status to penicillin; Z79.82 Long term (current) use of aspirin
CPT/HCPCS: 36415; 36600; 71045; 76705; 76775; 80048; 80053; 80061; 80074; 81001; 82140; 82570; 82805; 82962; 83036; 83735; 83880; 84100; 84156; 84300; 84439; 84443; 84481; 84484; 84550; 85025; 85379; 87040; 87081; 87086; 87426; 87804; 93005; 93306; 93970; 94640; 96361; 96374; 99291; G0378; J1815; J1956; J2405

== ENCOUNTER 2025-09-24 15:09 | Emergency (ER) | payer MEDICARE, OTHER ==
[~2025-09-24] VITALS: Ht 170.2 cm; Wt 95.6 kg
[2025-09-24 15:25] VITALS: PULSE 63; RESP 20; O2SAT 94
--- NOTE | 2025-09-24 15:29 | ED.PDOC ---
SOB-HPI HPI Comments This is a 80 year old male presenting to the ED with chief complaint of SOB. Patient reports that he has been experiencing SOB with associated fatigue worsening since yesterday. Patient relays that he has history of asthma and has been using his inhaler with mild relief noted. Patient denies any chest pain, dizziness, fever, chills, headache, cough, or congestion. Chief Complaint: Shortness of Breath Time Seen by MD: 15:29 Primary Care Provider: MARY Reviewed notes: Nurses Notes, Medications, Allergies Information Source: Patient Mode of Arrival: Ambulatory Severity: Moderate Timing: Days Duration: Since onset Context: At Rest PE Risk Factors: None History of: Asthma Prehospital treatment: Breathing Tx Modifying Factors: Nothing Past Medical History PAST MEDICAL HISTORY: Asthma, Cancer, CHF, CKF, COPD, High Lipids Surgical History: Appendectomy, CABG, Pacemaker Family History Family History: No family hx of Cancer, No family hx of DM, Unknown Social History Smoker: Non-Smoker, Quit Greater Than 1 Year, Cigarettes Alcohol: Occasionally Drugs: Denies Drug Use Lives In: Home Constitutional: reports: fatigue; denies: chills, diaphoresis, fever, malaise, sweats, weakness, others EENTM: denies: blurred vision, double vision, ear bleeding, ear discharge, ear drainage, ear pain, ear ringing, eye pain, eye redness, hearing loss, mouth pain, mouth swelling, nasal discharge, nose bleeding, nose congestion, nose pa in, photophobia, tearing, throat pain, throat swelling, voice changes, others Respiratory: reports: shortness of breath; denies: cough, hemoptysis, orthopnea, SOB at rest, SOB with excertion, stridor, wheezing, others Cardiovascular: denies: chest pain, dizzy spells, diaphoresis, Dyspnea on exertion, edema, irregular heart beat, left arm pain, lightheadedness, palpitations, PND, syncope, others Gastrointestinal: denies: abdomen distended, abdominal pain, blood streaked bowels, constipated, diarrhea, dysphagia, difficulty swallowing, hematemesis, m davida, nausea, poor appetite, poor fluid intake, rectal bleeding, rectal pain, vomiting, others Genitourinary: denies: burning, dysuria, flank pain, frequency, hematuria, incontinence, penile discharge, penile sore, pain, testicle pain, testicle swelling, urgency, others Neurological: denies: dizziness, fainting, headache, left sided numbness, left sided weakness, numbness, paresthesia, pre-existing deficit, right sided numbness, right sided weakness, seizure, speech problems, tingling, tremors, weakness, others Musculoskeletal: denies: back pain, gout, joint pain, joint swelling, muscle pain, muscle stiffness, neck pain, others Integumetry: denies: bruises, change in color, change in hair/nails, dryness, laceration, lesions, lumps, rash, wounds, others Allergic/Immunocompromised: denies: Difficulty Healing, Frequent Infections, Hives, Itching, others Hematologic/Lymphatic: denies: anemia, blood clots, easy bleeding, easy bruising, swollen glands, others Endocrine: denies: excessive hunger, excessive sweating, excessive thirst, excessive urination, flushing, intolerance to cold, intolerance to heat, unexplained weight gain, unexplained weight loss, others Psychiatric: denies: anxiety, bipolar disorder, depression, hopeless, panic disorder, schizophrenia, sleepless, suicidal, others All Other Systems: Reviewed and Negative Physical Exam General Appearance: No Apparent Distress, Normal HEENT: Normal ENT Inspection, Pharynx Normal, TMs Normal Neck: Full Range of Motion, Non-Tender, Normal, Normal Inspection Respiratory: Chest Non-Tender, Lungs Clear, No Accessory Muscle Use, No Respiratory Distress, Normal Breath Sounds Cardiovascular: No Edema, No JVD, No Murmur, No Gallop, Normal Peripheral Pulses, Regular Rate/Rhythm Breast Exam: Deferred Gastrointestinal: No Organomegaly, Non Tender, No Pulsatile Mass, Normal Bowel Sounds, Soft Genitalia: Deferred Pelvic: Deferred Rectal: Deferred Extremities: No calf tenderness, Normal capillary refill, Normal inspection, Normal range of motion, Non-tender, No pedal edema Musculoskeletal : Apperance: Normal Neurologic: Alert, drawing operator II-XII nml as Tested, No Motor Deficits, Normal Affect, Normal Mood, No Sensory Deficits Cerebellar Function: Normal Reflexes: Normal Skin: Dry, Normal Color, Warm Lymphatic: No Adenopathy Was a procedure done? Was a procedure done?: No Differential Dx Differential Diagnosis: CHF X-Ray, Labs, Meds, VS Vital Signs Date Time Temp Pulse Resp B/P (MAP) Pulse Ox O2 Delivery O2 Flow Rate FiO2 09/24/25 18:18 102/69 09/24/25 17:30 62 18 102/69 (80) 100 09/24/25 15:45 99 Nasal Cannula* 2 28 09/24/25 15:32 63 09/24/25 15:14 97.4 53 20 106/66 98 97.4 Lab Test 09/24/25 16:51 09/24/25 15:51 Range/Units Troponin I High Sensitivity 11 10 </=54 ng/L White Blood Count 8.2 4.4-10.8 10^3/uL Red Blood Count 4.77 4.5-5.90 10^6/uL Hemoglobin 14.7 13.5-17.5 g/dL Hematocrit 43.7 41.0-53.0 % Mean Corpuscular Volume 91.6 80.0-100.0 fL Mean Corpuscular Hemoglobin 30.9 28.0-32.0 pg Mean Corpuscular Hemoglobin Concent 33.7 32.0-36.0 g/dL Red Cell Distribution Width 16.1 H 11.8-14.3 % Platelet Count 116 L 140-450 10^3/uL Mean Platelet Volume 9.3 6.9-10.8 fL Neutrophils (%) (Auto) 72.1 37.0-80.0 % Lymphocytes (%) (Auto) 13.8 10.0-50.0 % Monocytes (%) (Auto) 13.1 H 0.0-12.0 % Eosinophils (%) (Auto) 0.6 0.0-7.0 % Basophils (%) (Auto) 0.4 0.0-2.0 % Neutrophils # (Auto) 5.9 1.6-8.6 10 ^3/uL Lymphocytes # (Auto) 1.1 0.4-5.4 10 ^3/uL Monocytes # (Auto) 1.1 0-1.3 10 ^3/uL Eosinophils # (Auto) 0.1 0-0.8 10 ^3/uL Basophils # (Auto) 0 0-0.2 10 ^3/uL Nucleated Red Blood Cells 0.0 % Sodium Level 139 136-145 mmol/L Potassium Level 3.8 3.5-5.1 mmol/L Chloride Level 102 98-107 mmol/L Carbon Dioxide Level 26 20-31 mmol/L Anion Gap 11 5-15 Blood Urea Nitrogen 44 H 9-23 mg/dL Creatinine 2.35 H 0.700-1.30 mg/dL Glomerular Filtration Rate Calc 27 >90 mL/min BUN/Creatinine Ratio 18.7 10.0-20.0 Serum Glucose 156 H 74-106 mg/dL Calcium Level 8.9 8.7-10.4 mg/dL B-Type Natriuretic Peptide 4074.44 0-100 pg/mL Current Medications Medications (Trade) Dose Ordered Sig/Freddy Route Start Time Stop Time Status Last Admin Albuterol (Ventolin Medneb) 2.5 mg ONCE ONCE NEB 09/24/25 15:45 09/24/25 15:46 DC 09/24/25 15:44 Ipratropium [place] (Atrovent Medneb) 0.5 mg ONCE ONCE NEB 09/24/25 15:45 09/24/25 15:46 DC 09/24/25 15:44 Bumetanide (Bumex Injection) 1 mg ONCE ONCE IV 09/24/25 17:00 09/24/25 17:34 DC 09/24/25 18:18 X-Ray, Labs, Meds, VS Comment Patient be transferred to [facility]. Spoke with Dr. Almazan, [place] [facility]. Patient is stable for transfer to [facility] facility pending transfer authorization number [id number] Patient given 1 mg Bumex Patient hemodynamically stable Time of 1ST Reevaluation: 16:28 Reevaluation 1ST: Unchanged Patient Education/Counseling: Diagnosis, Treatment Family Education/Counseling: No Family Present SEPSIS Sepsis Screen Date sepsis recognized/suspect: Sep 24, 2025 Time Sepsis recognized/suspect: 151 Recent Procedure: No On Antibiotic Therapy: No Respiratory Rate >20: No Heart Rate >90: No Temp<36 C (96.8 F) or >38.3 C: No SBP <90 or MAP <65 mmHG: No New Acute Mental Status Change: No Is the patient on CPAP, BIPAP,: No Physician Orders Chest Portable (09/24/25 15:31) Urinalysis (09/24/25 15:31) Troponin-I Hs (09/24/25 18:31) Electrocardigram (09/24/25 16:32) Imaging Transfer Request (09/24/25 17:15) Vital Signs Date Time Temp Pulse Resp B/P (MAP) Pulse Ox O2 Delivery O2 Flow Rate FiO2 09/24/25 18:18 102/69 09/24/25 17:30 62 18 102/69 (80) 100 09/24/25 15:45 99 Nasal Cannula* 2 28 09/24/25 15:32 63 09/24/25 15:14 97.4 53 20 106/66 98 97.4 Laboratory Tests Test 09/24/25 15:51 White Blood Count 8.2 10^3/uL (4.4-10.8) Medications Medications Dose Ordered Sig/Freddy Route Start Time Stop Time Status Last Admin Dose Admin Albuterol 2.5 mg ONCE ONCE NEB 09/24/25 15:45 09/24/25 15:46 DC 09/24/25 15:44 Bumetanide 1 mg ONCE ONCE IV 09/24/25 17:00 09/24/25 17:34 DC 09/24/25 18:18 Ipratropium [place] 0.5 mg ONCE ONCE NEB 09/24/25 15:45 09/24/25 15:46 DC 09/24/25 15:44 Departure 1 Departure Time of Disposition: 18:35 Impression: Primary Impression: SOB (shortness of breath) Additional Impression: ACUTE SYSTOLIC/DIASTOLIC HRT FAILURE Disposition: 02 SHORT TERM HOSPITAL Condition: Stable Discharged With: Self Critical Care Note Critical Care Time?: No Stability Stability form required: No Heart Score Heart Score: Heart Score Response (Comments) Value History Moderate Suspicious 1 EKG Normal 0 Age >65 2 Risk Factors >3 or Hx ASHD 2 Troponin Normal limit 0 Total 5 I personally scribed for MASSIEL BAUER ([email or web address]) on 09/24/25 at 15:29. Electronically submitted by Stu Barber ([email or web address]). MASSIEL BAUER Sep 24, 2025 15:29
[2025-09-24] MEDS: IPRATROPIUM BROM 0.5 MG/2.5ML INH SOL NEB ONE (15:44)
[2025-09-24] MEDS: ALBUTEROL SULF 2.5 MG/0.5ML(0.5%) NEB SOLN NEB ONE (15:44)
--- NOTE | 2025-09-24 15:57 | DVH ---
Procedure: XY CHEST PORTABLE History: sob Comparison: XY CHEST XRAY 1 VIEW on DOS: 08/07/25, Technique: Single view of the chest. Findings: Mild vascular congestion. Right basilar confluent opacity. Possible trace bilateral pleural effusion. The cardiomediastinal silhouette is stable. Stable left ICD. Impression: 1. Mild vascular congestion. 2. Right basilar confluent opacity which may represent atelectasis or developing airspace disease. 3. Possible trace bilateral pleural effusion.
[2025-09-24 16:12] LABS: Hematocrit 43.7 % (41.0-53.0); Hemoglobin 14.7 g/dL (13.5-17.5); Mean Corpuscular Hemoglobin 30.9 pg (28.0-32.0); Mean Corpuscular Volume 91.6 fL (80.0-100.0); Nucleated Red Blood Cells % 0.0 %
[2025-09-24 16:27] LABS: Chloride 102 mmol/L (98-107); Potassium 3.8 mmol/L (3.5-5.1); Sodium 139 mmol/L (136-145)
[2025-09-24 16:28] LABS: Anion Gap 11 (5-15); Carbon Dioxide 26 mmol/L (20-31)
[2025-09-24 16:29] LABS: Calcium 8.9 mg/dL (8.7-10.4)
[2025-09-24 16:34] LABS: BUN/Creatinine Ratio 18.7 (10.0-20.0); Blood Urea Nitrogen 44 mg/dL (9-23); Glucose 156 mg/dL (74-106)
[2025-09-24] MEDS: BUMETANIDE 1mg/4ml VIAL (0.25mg/ml) IV ONE (18:18)
[2025-09-24 20:27] VITALS: BP 111/66; PULSE 67; RESP 18; TEMP 97.8; O2SAT 97
--- NOTE | 2025-09-26 12:45 | ECG ---
[facility] Test Date: 2025-09-24 Test Time: 15:32:34 Pat Name: LUIS ALBERTO AMAYA Department: Room: Gender: M [employer]visor: : 1945 Requested By: MASSIEL BAUER Order Number: [id number] Reading MD: Kilo Alaniz Measurements Intervals [place] Rate: 63 P: 106 OR: 319 QRS: 238 QRSD: 211 T: 71 QT: 594 QTc: 609 Interpretive Statements Atrial-ventricular dual-paced rhythm No further analysis attempted due to paced rhythm Baseline wander in lead(s) I,III,aVL Electronically Signed On 09-29-2025 10:51:07 PST by Kilo Alaniz Please click the below link to view image of tracing.
== END 2025-09-24 20:25 | disposition short-term general hospital (02) ==
LOC: ER 15:09
DX: R06.02 Shortness of breath (principal); I50.9 Heart failure, unspecified; J44.9 Chronic obstructive pulmonary disease, unspecified; Z79.890 Hormone replacement therapy; Z90.49 Acquired absence of other specified parts of digestive tract; Z95.0 Presence of cardiac pacemaker; Z95.1 Presence of aortocoronary bypass graft
CPT/HCPCS: 36415; 71045; 80048; 83880; 84484; 85025; 93005; 94640; 96374